=== PATIENT | female | born 1990 | race Caucasian/White ===

== ENCOUNTER 2023-10-27 13:03 | Emergency (ER) | payer OTHER, SELFPAY ==
[2023-10-27] VITALS (7 sets, daily range): BP systolic 95–110; BP diastolic 50–64; PULSE 42–60; RESP 16–18; TEMP 36.7; O2SAT 98–100; BMI 23.2
[2023-10-27 14:19] LABS: Basophils % 0.5 %; Eosinophils # 0.3 10^3/uL (0.0-0.8); Eosinophils % 4.5 %; Hematocrit 40.9 % (36-47); Lymphocytes # 2.1 10^3/uL (0.8-4.8); Lymphocytes % 33.5 %; Mean Corpuscular HGB Conc 32.3 g/dL (30-55); Mean Corpuscular Hemoglobin 31.1 pg (27-33); Mean Corpuscular Volume 96.5 fl (85-98); Mean Platelet Volume 11.6 fL (7.4-10.4); Monocytes # 0.7 10^3/uL (0.2-0.9); Monocytes % 10.2 %; Neutrophils # 3.27 10^3/uL (1.8-7.7); Neutrophils % 51.1 %; Nucleated Red Blood Cells % 0 %; Platelet Count 205 10^3/cmm (157-399); Red Blood Count 4.24 10^6/uL (3.85-5.65); Red Cell Distribution Width 12.5 % (12.1-15.1); White Blood Count 6.39 10^3/uL (3.29-11.43)
[2023-10-27 14:36] LABS: HCG, Serum Qual Negative (Negative)
--- NOTE | 2023-10-27 15:03 | PC.NURSE ---
this nurse assumed pt care at 1459 when pt was brought to room 3.
[2023-10-27 15:23] LABS: Charge for UA Resulting for Rev
[2023-10-27 15:26] LABS: Bilirubin Urine Negative (Negative); Blood Urine Negative (Negative); Glucose Urine UA Negative (Normal); Ketones Urine Negative (Negative); Leukocyte Esterase Urine 2+ (Negative); Nitrate Urine Negative (Negative); Protein Urine Negative (Negative); Specific Gravity, Urine 1.019 (1.005-1.030); Urine Appearance Clear (CLEAR); Urine Color Yellow (Yellow)
[2023-10-27 15:28] LABS: Bacteria Urine Trace /hpf; Hyaline Casts Urine 1.65 /lpf; RBC Urine 0-2 /hpf (0-2); Squamous Epithelial Cell Urine 0-5 /hpf (0-5)
[2023-10-27 15:33] LABS: Add Urine Culture? Yes
[2023-10-27 15:33] LABS: Alanine Aminotransferase 8 U/L (0-33); Albumin Level 4.3 g/dL (3.5-5.2); Alkaline Phosphatase 50 U/L (35-105); Aspartate Amino Transferase 12 U/L (0-32); Blood Urea Nitrogen 9 mg/dL (6-20); Calcium 9.4 mg/dL (8.5-10.5); Carbon Dioxide 21 mmol/L (22-29); Chloride 106 mmol/L (98-107); Creatinine Clr Calc Pharmacy 97.6178; Globulin 2.9 g/dL (1.3-4.6); Glomerular Filtration Rate 97.6 mL/min (90-130); Glucose 92 mg/dL (65-115); Lipase 24 U/L (13-60); Osmolality Calculated 288 mOsm/kg (285-295); Sodium 140 mmol/L (136-145); Total Bilirubin 0.4 mg/dL (0.15-1.2); Total Protein 7.2 g/dL (6.6-8.7)
--- NOTE | 2023-10-27 15:35 | CTR_ITS ---
PROCEDURE INFORMATION: Exam: CT Abdomen And Pelvis With Contrast Exam date and time: 10/27/2023 3:41 PM Age: 33 years old Clinical indication: Abdominal pain; Localized; Right lower quadrant (rlq); Prior surgery; Surgery date: 6+ months; Surgery type: Fallopian tube removal; Additional info: R lower abdominal pain; N/v/d TECHNIQUE: Imaging protocol: Computed tomography of the abdomen and pelvis with contrast. Radiation optimization: All CT scans at this facility use at least one of these dose optimization techniques: automated exposure control; mA and/or kV adjustment per patient size (includes targeted exams where dose is matched to clinical indication); or iterative reconstruction. Contrast material: OMNI 350; Contrast volume: 100 ml; Contrast route: INTRAVENOUS (IV); COMPARISON: No relevant prior studies available. RADIATION DOSE METRICS: Total DLP (mGy-cm): 334.81 FINDINGS: Liver: Normal. No mass. Gallbladder and biliary ducts: The gallbladder is contracted. Pancreas: Normal. No ductal dilation. Spleen: Normal. No splenomegaly. Adrenal glands: Normal. No mass. Kidneys and ureters: Normal. No hydronephrosis. Stomach and bowel: Unremarkable. No obstruction. No mucosal thickening. Appendix: No evidence of appendicitis. Intraperitoneal space: Unremarkable. No free air. No significant fluid collection. Vasculature: Unremarkable. No abdominal aortic aneurysm. Lymph nodes: Unremarkable. No enlarged lymph nodes. Urinary bladder: Unremarkable as visualized. Reproductive: There are probable ovarian cysts.Fluid is seen in the pelvis which may be physiologic. Bones/joints: Unremarkable. No acute fracture. Soft tissues: Unremarkable. CT/CT abdomen pelvis w con* [id number] IMPRESSION: There are no acute concerning abnormalities. There are probable ovarian cysts.Fluid is seen in the pelvis which may be physiologic. If there is desire for further evaluation, a pelvic ultrasound could be performed.
--- NOTE | 2023-10-27 15:36 | ED_ITS ---
HPI - Abdominal Pain 2 General: Chief Complaint: Abdominal Pain Stated Complaint: ABD PAIN Time Seen by Provider: 10/27/23 14:40 Source: patient Mode of arrival: ambulatory Limitations: no limitations History of Present Illness: Patient is a 33-year-old female presents to ED today with complaint of right lower quadrant abdominal pain that began approximately 3 to 4 days ago. She states pain is progressively worsened since onset. She states she is now having nausea, has had a couple of episodes of nonbloody emesis as well as diarrhea. She is reporting chills but no noted fevers. She feels like pain is worse with movement and walking. She states she is scheduled to start her next menstrual cycle in a few days. Denies chance of as she has had a bilateral salpingectomy. She does report being told in the past that she could have diverticulosis or ulcerative colitis although states none of her symptoms today feel similar to previous GI issues she has experienced. She is not having any urinary symptoms. No flank pain. MD elicited complaint: abdominal pain Pertinent past history: none Onset (ago): day(s) Pain Consistency: constant and other (progressively worsening) Location: RLQ Severity: severe Quality: sharp Radiation: none Migration to: no migration Exacerbating factors: movement and other (walking) Relieving factors: nothing Associated Symptoms: Reports chills, diarrhea, nausea and vomiting; Denies dysuria, fever(s) and hematemesis Related Data: Patient : No Review of Systems 2 Const: Reports: chills; Denies: fever(s), body aches, fatigue or malaise Card: Denies: chest pain Resp: Denies: dyspnea GI: Reports: abdominal pain, nausea, vomiting and diarrhea; Denies: hematemesis : Denies: flank pain, difficulty voiding, dysuria, urinary frequency, urinary urgency, urinary hesitancy, genital lesions, genital pruritis, vaginal odor, vaginal bleeding or vaginal discharge Musc: Denies: neck pain, back pain, extremity pain or joint pain Skin/Breast: Denies: rash Neuro: Denies: headache(s) or dizziness Physical Exam 2 Const: COMMON NORMALS: no acute distress, average body habitus, patient oriented x3, no limitations, healthy appearing, alert and well nourished G ENERAL APPEARANCE: cooperative ORIENTATION/CONSCIOUSNESS: Yes awake, Yes oriented to person, Yes oriented to place and Yes oriented to time Eye: COMMON NORMALS: no scleral icterus Resp: COMMON NORMALS: normal respiratory effort and clear to auscultation bilaterally AUSCULTATION: clear to auscultation bilaterally Cardio: COMMON NORMALS: regular rate and regular rhythm RATE: regular rate RHYTHM: regular rhythm GI: COMMON NORMALS: Normal to inspection, nondistended, normoactive bowel sounds present, Soft to palpation, No hepatosplenomegaly present and no masses INSPECTION: Yes normal to inspection AUSCULTATION: Yes normoactive bowel sounds PALPATION: Yes Soft to palpation, Yes Tenderness to palpation present (GI) Details: RLQ, Yes Guarding due to palpation present (GI), No Rigid due to palpation and Yes No hepatosplenomegaly present OTHER: specialized appy testing : COMMON NORMALS: Yes no CVA tenderness BLADDER/KIDNEY EXAM: Yes no CVA tenderness Back/Pelvis: COMMON NORMALS: no CVA tenderness and thoracic and lumbar spine normal to inspection Extremity: GENERAL: Yes normal exam except as noted Neuro: MARQUEZ COMA SCALE: document GCS findings Marquez coma scale eye opening: Spontaneous Marquez coma scale verbal response: Orientated Marquez coma scale motor response: Obey commands Marquez coma scale total score: 15 COMMON NORMALS: patient oriented x3 SENSORIUM/ORIENTATION: Yes alert, Yes oriented to person, Yes oriented to place and Yes oriented to time Skin: COMMON NORMALS: no rashes or lesions noted GENERAL SKIN EXAM: no rashes or lesions noted Course 2 Vital Signs: Vital signs: Vital Signs Temperature 98.1 F 10/27/23 13:31 Pulse Rate 42 L 10/27/23 17:55 Respiratory Rate 16 10/27/23 17:55 Blood Pressure 95/54 10/27/23 17:55 Pulse Oximetry 99 10/27/23 17:55 Oxygen Delivery Me thod Room Air 10/27/23 17:55 MDM - Abdominal Pain Medical Decision Making Patient here for right lower quadrant pain over the past 3 days. She arrives with stable vital signs. Blood work is completely unremarkable. She has a normal white count. UA suspicious for infection with 2+ leukocyte esterase and 15-[address] scan showing no acute concerning abnormalities. Pelvic ultrasound is essentially unremarkable per Hung/electrostatic powder coating technician. Recommend close follow-up with her primary care provider early this week for reevaluation. Return to ED precautions given. Medical Records I reviewed the patient's medical records. Lab Data I reviewed the patient's lab results. 10/27/23 14:01 10/27/23 14:01 Labs/Radiology: Radiology Impressions Abdomen/Pelvis CT 10/27/23 15:35 IMPRESSION: There are no acute concerning abnormalities. There are probable ovarian cysts.Fluid is seen in the pelvis which may be physiologic. If there is desire for further evaluation, a pelvic ultrasound could be performed. Laboratory Results WBC 6.39 10^3/uL (3.29-11.43) 10/27/23 14:01 RBC 4.24 10^6/uL (3.85-5.65) 10/27/23 14:01 Hgb 13.20 g/dL (11.27-16.99) 10/27/23 14:01 Hct 40.9 % (36-47) 10/27/23 14:01 MCV 96.5 fl (85-98) 10/27/23 14:01 MCH 31.1 pg (27-33) 10/27/23 14:01 MCHC 32.3 g/dL (30-55) 10/27/23 14:01 RDW 12.5 % (12.1-15.1) 10/27/23 14:01 Plt Count 205 10^3/cmm (157-399) 10/27/23 14:01 MPV 11.6 fL (7.4-10.4) H 10/27/23 14:01 Neut % (Auto) 51.1 % 10/27/23 14:01 Lymph % (Auto) 33.5 % 10/27/23 14:01 [place] % (Auto) 10.2 % 10/27/23 14:01 Eos % (Auto) 4.5 % 10/27/23 14:01 Baso % (Auto) 0.5 % 10/27/23 14:01 Neut # (Auto) 3.27 10^3/uL (1.8-7.7) 10/27/23 14:01 Lymph # (Auto) 2.1 10^3/uL (0.8-4.8) 10/27/23 14:01 [place] # (Auto) 0.7 10^3/uL (0.2-0.9) 10/27/23 14:01 Eos # (Auto) 0.3 10^3/uL (0.0-0.8) 10/27/23 14:01 Baso # (Auto) 0.0 10^3/uL (0.0-0.1) 10/27/23 14:01 Nucleated RBC % (auto) 0 % 10/27/23 14:01 Nucleated RBCs # 0.0 /100WBC 10/27/23 14:01 Sodium 140 mmol/L (136-145) 10/27/23 14:01 Potassium 4.0 mmol/L (3.5-5.1) 10/27/23 14:01 Chloride 106 mmol/L (98-107) 10/27/23 14:01 Carbon Dioxide 21 mmol/L (22-29) L 10/27/23 14:01 Anion Gap 17.0 (5-19) 10/27/23 14:01 BUN 9 mg/dL (6-20) 10/27/23 14:01 Creatinine 0.7 mg/dL (0.5-0.9) 10/27/23 14:01 GFR Calculation 97.6 mL/min (90-130) 10/27/23 14:01 Glucose 92 mg/dL (65-115) 10/27/23 14:01 Calculated Osmolality 288 mOsm/kg (285-295) 10/27/23 14:01 Calcium 9.4 mg/dL (8.5-10.5) 10/27/23 14:01 Total Bilirubin 0.4 mg/dL (0.15-1.2) 10/27/23 14:01 AST 12 U/L (0-32) 10/27/23 14:01 ALT 8 U/L (0-33) 10/27/23 14:01 Alkaline Phosphatase 50 U/L (35-105) 10/27/23 14:01 Total Protein 7.2 g/dL (6.6-8.7) 10/27/23 14:01 Albumin 4.3 g/dL (3.5-5.2) 10/27/23 14:01 Globulin 2.9 g/dL (1.3-4.6) 10/27/23 14:01 Lipase 24 U/L (13-60) 10/27/23 14:01 HCG, Qual Negative (Negative) 10/27/23 14:01 Urine Color Yellow (Yellow) 10/27/23 15:18 Urine Appearance Clear (CLEAR) 10/27/23 15:18 Urine pH 7.0 (5-7) 10/27/23 15:18 Ur Specific [place] 1.019 (1.005-1.030) 10/27/23 15:18 Urine Protein Negative (Negative) 10/27/23 15:18 Urine Glucose (UA) Negative (Normal) 10/27/23 15:18 Urine Ketones Negative (Negative) 10/27/23 15:18 Urine Blood Negative (Negative) 10/27/23 15:18 Urine Nitrate Negative (Negative) 10/27/23 15:18 Urine Bilirubin Negative (Negative) 10/27/23 15:18 Urine Urobilinogen 1.0 mg/dL (Negative) 10/27/23 15:18 Ur Leukocyte Esterase 2+ (Negative) A 10/27/23 15:18 Urine RBC 0-2 /hpf (0-2) 10/27/23 15:18 Urine WBC 11-20 /hpf (0-5) H 10/27/23 15:18 Ur Squamous Epith Cells 0-5 /hpf (0-5) 10/27/23 15:18 Amorphous Sediment Not Reportable 10/27/23 15:18 Urine Bacteria Trace /hpf (NONE) 10/27/23 15:18 Hyaline Casts 1.65 /lpf 10/27/23 15:18 All radiology interpretation(s) finalized by discharge Discharge Plan Discharge Patient Disposition: Home Clinical Impression: Abdominal pain, acute, right lower quadrant UTI (urinary tract infection) Qualifiers: Urinary tract infection type: acute cystitis Hematuria presence: without hematuria Qualified Code(s): N30.00 - Acute cystitis without hematuria Condition: Stable Prescriptions: New Macrobid 100 mg capsule 100 mg PO BID 7 Days Qty: 14 0RF Rx Instructions: must administer with a meal/food No Action paroxetine HCl [Paxil] 10 mg tablet 10 mg PO DAILY montelukast 10 mg tablet 10 mg PO DAILY albuterol sulfate 90 mcg/actuation aerosol powdr breath activated 2 inh inhalation Q4H PRN paroxetine HCl [Paxil] 10 mg tablet 10 mg PO DAILY Qty: 21 0RF Discharge Orders: Discharge ED (Routine); Ordered 10/27/23 Ordered By: Inocencia Hernandze Patient Instructions: Abdominal Pain (ED) Activity Restrictions/Additional Instructions: Please follow-up with your primary care provider early this week for reevaluation. You need to return to the emergency department for worsening pain, fevers, generally feeling worse or unwell, uncontrollable vomiting or diarrhea, flank pain, or any other concerns you may have. I hope you begin to feel better soon. Coding Level of Care Code ED Radio Assembler for Dolores Nathan
[2023-10-27] MEDS: iohexol 350 mg/mL 500 mL Btl (per mL) IV (15:45)
--- NOTE | 2023-10-27 16:57 | USR_ITS ---
PROCEDURE INFORMATION: Exam: US Pelvis, Transvaginal, Non-Obstetric Exam date and time: 10/27/2023 6:15 PM Age: 33 years old Clinical indication: Pelvic pain; Prior surgery; Surgery date: 6+ months; Surgery type: Unsure of dates- patient had a bilateral salpingectomy; Additional info: R pelvic pain TECHNIQUE: Imaging protocol: Real-time transvaginal pelvic (non-obstetric) ultrasound with image documentation. Transvaginal imaging was used for better evaluation of the endometrium, adnexa, and/or cervix. COMPARISON: CT abdomen pelvis w con* [id number] 10/27/2023 3:41 PM FINDINGS: Uterus: The uterus measures 4.3 x 4 cm. No uterine mass. The endometrial thickness is 0.6 cm. No intrauterine . Right ovary/adnexa: Measures 3.7 x 3.5 x 2 cm. There are subcentimeter physiologic cysts. No mass. Normal ovarian blood flow on color Doppler. Left ovary/adnexa: Measures 2.7 x 2.4 x 2.2 cm. There is isoechoic area just inferior to left ovary which may represent artifact versus ovarian tissue. There are subcentimeter physiologic cysts. No mass. Normal ovarian blood flow on color Doppler. Intraperitoneal space: There is a small amount of free fluid in the pelvis. US/US transvaginal [id number] IMPRESSION: No acute findings.
[2023-10-27] MEDS: ondansetron 2 mg/ML SDV 2 mL 4 MG IVP (17:20)
[2023-10-27] MEDS: HYDROmorphone 1 mg/mL INJ 1 mL 0.5 MG IVP (17:20)
[2023-10-27] MEDS: ketorolac 30 mg/mL INJ IVP (19:30)
== END 2023-10-27 19:39 | disposition home or self-care (01) ==
PROVIDERS: Emergency Provider Physician Assistant
DX: N30.00 Acute cystitis without hematuria (principal); R10.31 Right lower quadrant pain
CPT/HCPCS: 36415; 74177; 76830; 80053; 81003; 81015; 83690; 84703; 85025; 87086; 96374; 96375; 99285; J1170; J1885; J2405; Q9967

== ENCOUNTER 2024-09-23 01:11 | Emergency (ER) | payer MEDICAID, SELFPAY ==
--- OUTSIDE RECORDS SUMMARY | 2024-09-23 01:14 | XMS_ITS | Data Portability ---
Author Organization AFIA Johnson [facility] [place] [facility], [facility] Address [address] [facility] [address] [place] [address] Assessment Encounter Date Assessment Date Assessment LastModified by Organization Details LastModified Time 01/30/2024 01/30/2024 Patient here for a check-up today. She had scans done in [place] previously. No history of colonoscopy. She was told maybe she had diverticulosis or ulcerative colitis per patient. She reports she had a baby in March in 2022 and thinks that was around when her last pap smear was. She will sign for her records to be sent here. 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 Not available 01/31/2024 12:45:29 07/02/2024 07/02/2024 Patient here today to establish care and to discuss the pain she has been having in her hip. She reports she did fall and did not seek treatment at the time of the fall anywhere and the pain has just continued. Not available 07/03/2024 16:52:15 Plan of Treatment Reminders Order Date Submit Date Provider Last Modified By Organization Details Last Modified Time Details Appointments None recorded. Lab CMP, serum or plasma 2024 025 DARNELL [facility], [address] [facility] [address], [address], [place], [address], 5 16:28:43 CMP, serum or plasma 2023 024 DARNELLIRMA [facility], [address] [facility], [address], [place], [address], 4 14:13:17 lipid panel, blood 2023 024 [facility], [address] [facility] [facility] [address], [address], 4 14:13:20 CBC 2023 024 [facility], [address] [facility] [facility] [address], [address], 4 12:52:27 TSH, serum or plasma 2023 024 [facility] ([facility]), [address] [place], [address], 4 13:22:39 Referral primary care provider referral 2023 024 [email or web address] Not available 4 10:43:00 psychiatris t referral 2023 024 [email or web address] Not available 4 11:51:04 Procedures None recorded. Surgeries None recorded. Imaging XR, hip, unilateral, 2 or 3 view 2024 025 [facility] ([facility]), [address] [place], [address], 5 08:35:30 PFT, complete [email or web address] [place] [address] (Scheduling Orders), [address] [place], [address], 4 10:15:18 Medication Orders Paxil 10 mg tablet 2024 025 [facility] [place], [address] [place], [address], 5 16:26:19 ProAir HFA 90 mcg/actuati on aerosol inhaler 2023 025 [facility]acy #[id number], [address], [address], [place], [address], 5 15:11:17 Paxil 10 mg tablet 2023 024 [email or web address] [facility]acy #[id number], [address], [address], [place], [address], 5 15:11:10 meloxicam 7.5 mg tablet 2023 024 [facility]/Ph[facility]acy #[id number], [address], [address], [place], [address], 14:21:37 Patient TargetsNo targets recorded. Patient Instructions Encounter Date Encounter Id Patient Instructions Last Modified By Organization Details Last Modified Time 01/30/2024 [id number] Call or return for questions or concerns. Not available 01/30/2024 11:33:27 07/02/2024 [id number] Call or return for questions or concerns. Not available 07/03/2024 16:52:39 Reason for Referral Psychiatrist Referral for De pressive disorder Referring Physician: [facility], Encounter Date: 01/30/2024 Primary Care Provider Referr al for Abdominal pain Referring Physician: [facility], Encounter Date: 01/30/2024 Results Created Date Observation Date Name Description Value Unit Range Abnormal Flag Note LastModifiedBy Organization Detail LastModifiedTime 01/30/2001/30/2024 CBC WBC 9.3 x10 4.0-10 .5 Not Available [facility] [address] [facility], [place], [address], 01/30/2024 12:52:26 01/30/20 24 01/30/2024 CBC RBC 4.23 x10 3.50-5 .50 Not Available [facility] [address] [facility] [facility] [address], [place], [address], 01/30/2024 12:52:26 01/30/20 24 01/30/2024 CBC HGB 13.5 g/dL 12.0-1 6.0 Not Available [facility] [address], [place], [address], 01/30/2024 12:52:26 01/30/20 24 01/30/2024 CBC HCT 39.6 % 37.0-4 7.0 Not Available [facility] [address], [place], [address], 01/30/2024 12:52:26 01/30/20 24 01/30/2024 CBC MCV 93.6 fL 80.0-9 9.9 Not Available [facility] [address] [facility] [address], [place], [address], 01/30/2024 12:52:26 01/30/20 24 01/30/2024 CBC MCH 31.8 pg 27.0-3 2.0 Not Available [facility] [address], [place], [address], 01/30/2024 12:52:26 01/30/20 24 01/30/2024 CBC MCHC 34.0 g/dL 32.0-3 6.0 Not Available [facility] [address], [place], [address], 01/30/2024 12:52:26 01/30/20 24 01/30/2024 CBC RDW 14.3 % 11.5-1 4.5 Not Available [facility] [address], [place], [address], 01/30/2024 12:52:26 01/30/20 24 01/30/2024 CBC plt 245.7 x10 140.0- 451.0 Not Available [facility] [address] [address] [facility] [address], [place], [address], 01/30/2024 12:52:26 01/30/20 24 01/30/2024 CBC lymphocytes % 25.1 % 20.0-5 0.0 Not Available [facility] [address] [facility] [facility] [address] [facility] [address], [place], [address], 01/30/2024 12:52:26 01/30/20 24 01/30/2024 CBC granulcytes % 65.4 % 30.0-7 0.0 Not Available [facility] [address] [facility] [address] [facility] [address], [place], [address], 01/30/2024 12:52:26 01/30/20 24 01/30/2024 CBC monocytes % 6.6 % 2.0-16 .0 Not Available [facility] [address] [place] [address] [facility] [address], [place], [address], 01/30/2024 12:52:26 01/30/20 24 01/30/2024 CBC granulcytes# 6.1 x10 Not Brenda ilable [facility] [address] [facility] [address] [facility] [address], [place], [address], 01/30/2024 12:52:26 01/30/20 24 01/30/2024 CBC lymphocytes # 2.3 x10 Not Available [facility] [address] [facility] [address] [facility] [address], [place], [address], 01/30/2024 12:52:26 01/30/20 24 01/30/2024 CBC monocytes # 0.6 x10 Not Avai lable [facility] [address] [facility] [address] [facility] [address], [place], [address], 01/30/2024 12:52:26 01/30/20 24 01/30/2024 CMP (FEMA LE) glucose 95.0 mg/dL 60.0-9 9.0 Not Available [facility] [address] [facility], [place], [address], 01/30/2024 14:13:17 01/30/20 24 01/30/2024 CMP (FEMA LE) BUN (blood urea nitrogen) 11.0 mg/dL 10.0-2 6.0 Not Available [facility] [address] [facility] [address], [place], [address], 01/30/2024 14:13:17 01/30/20 24 01/30/2024 CMP (FEMA LE) creatinine (serum) 0.7 mg/dL 0.4-1. 5 Not Available [facility] [address] [facility] [address], [place], [address], 01/30/2024 14:13:17 01/30/20 24 01/30/2024 CMP (FEMA LE) BUN/creatini ne ratio 15.07 ratio Not Available [facility] [address] [facility] [address], [place], [address], 01/30/2024 14:13:17 01/30/2001/30/2024 CMP (FEMA LE) eGFR calculated 98.8 Not Available [facility] [address] [facility] [address], [place], [address], 01/30/2024 14:13:17 01/30/20 24 01/30/2024 CMP (FEMA LE) total protein 7.9 g/dL 6.0-8. 5 Not Available [facility] [address] [facility] [address], [place], [address], 01/30/2024 14:13:17 01/30/20 24 01/30/2024 CMP (FEMA LE) total bilirubin 0.4 mg/dL 0.2-1. 3 Not Available [facility] [address] [address], [place], [address], 01/30/2024 14:13:17 01/30/20 24 01/30/2024 CMP (FEMA LE) albumin 4.7 g/dL 3.5-5. 5 Not Available [facility] [address], [place], [address], 01/30/2024 14:13:17 01/30/20 24 01/30/2024 CMP (FEMA LE) globulin 3.2 calc Not Available [facility] [address], [place], [address], 01/30/2024 14:13:17 01/30/20 24 01/30/2024 CMP (FEMA LE) AST (SGOT) 18.0 U/L 0.0-46 .0 Not Available [facility] [address] [facility] [address] [facility] [address], [place], [address], 01/30/2024 14:13:17 01/30/20 24 01/30/2024 CMP (FEMA LE) altv (SGPT) 14.0 U/L 13.0-6 9.0 normal Not Available [facility] [address] [facility] [address] [facility] [address], [place], [address], 01/30/2024 14:13:17 01/30/20 24 01/30/2024 CMP (FEMA LE) A/G ratio 1.5 ratio Not Available [facility] [address], [place], [address], 01/30/2024 14:13:17 01/30/20 24 01/30/2024 CMP (FEMA LE) ALP phos 47.0 U/L 30.0-1 40.0 normal Not Available [facility] [address] [place] [address] [facility] [address], [place], [address], 01/30/2024 14:13:17 01/30/20 24 01/30/2024 CMP (FEMA LE) calcium 9.7 mg/dL 8.4-10 .5 Not Available [facility] [address] [facility] [address], [place], [address], 01/30/2024 14:13:17 01/30/2001/30/2024 CMP (FEMA LE) sodium 140.0 mmol/ L 136.0- 145.0 Not Available [facility] [address] [facility] [address], [place], [address], 01/30/2024 14:13:17 01/30/2001/30/2024 CMP (FEMA LE) potassium 4.2 mmol/ L 3.5-5. 1 Not Available [facility] [address] [facility] [address], [place], [address], 01/30/2024 14:13:17 01/30/2001/30/2024 CMP (FEMA LE) chloride 105.0 mmol/ L 98.0-1 10.0 normal Not Available [facility] [address] [facility] [address], [place], [address], 01/30/2024 14:13:17 01/30/20 24 01/30/2024 CMP (FEMA LE) C02 28.0 mmol/ L 22.0-3 1.0 Not Available [facility] [address] [facility] [address], [place], [address], 01/30/2024 14:13:17 01/30/2001/30/2024 CMP (FEMA LE) anion gap 7.0 calc Not Available [facility] [address] [facility] [address], [place], [address], 01/30/2024 14:13:17 01/30/2001/30/2024 CMP (FEMA LE) osmolality 288.4 calc Not Available [facility] [address] [facility] [address], [place], [address], 01/30/2024 14:13:17 01/30/20 24 01/30/2024 LIPID PROFI LE (FEMA LE) cholesterol 169.0 mg/dL 0.0-20 0.0 Not Available [facility] [address] [facility] [address], [place], [address], 01/30/2024 14:13:20 01/30/20 24 01/30/2024 LIPID PROFI LE (FEMA LE) trig 83.0 mg/dL 0.0-15 0.0 Not Available [facility] [address] [facility] [address], [place], [address], 01/30/2024 14:13:20 01/30/20 24 01/30/2024 LIPID PROFI LE (FEMA LE) HDL - direct 49.0 mg/dL >40.0 Not Available [facility] [address] [facility] [address], [place], [address], 01/30/2024 14:13:20 01/30/20 24 01/30/2024 LIPID PROFI LE (FEMA LE) VLDL - direct 16.6 mg/dL Not Available [facility] [address] [facility] [address], [place], [address], 01/30/2024 14:13:20 01/30/20 24 01/30/2024 LIPID PROFI LE (FEMA LE) LDL - direct 103.4 mg/dL 0.0-13 0.0 Not Available [facility] [address] [facility] [address], [place], [address], 01/30/2024 14:13:20 01/30/20 24 01/30/2024 TSH, serum or plasm a TSH 0.71 uIU/m L 0.49-3 .82 normal Not Available [facility] ([facility]) [address] [place], [address], 01/30/2024 11:13:06 07/03/19 25 07/02/2024 CMP (FEMA LE) glucose 79.0 mg/dL 60.0-9 9.0 Not Available [address] [address], [place], [address], 07/02/2024 16:28:43 07/03/19 25 07/02/2024 CMP (FEMA LE) BUN (blood urea nitrogen) 8.0 mg/dL 10.0-2 6.0 low Not Available [address] [address], [place], [address], 07/02/2024 16:28:43 07/03/19 25 07/02/2024 CMP (FEMA LE) creatinine (serum) 0.8 mg/dL 0.4-1. 5 Not Available [address] [address], [place], [address], 07/02/2024 16:28:43 07/03/19 25 07/02/2024 CMP (FEMA LE) BUN/creatini ne ratio 10.00 ratio Not Available [address] [address], [place], [address], 07/02/2024 16:28:43 07/03/19 25 07/02/2024 CMP (FEMA LE) eGFR calculated 88.9 Not Available [facility] [address] [address], [place], [address], 07/02/2024 16:28:43 07/03/19 25 07/02/2024 CMP (FEMA LE) total protein 7.6 g/dL 6.0-8. 5 Not Available [address] [address], [place], [address], 07/02/2024 16:28:43 07/03/19 25 07/02/2024 CMP (FEMA LE) total bilirubin 0.5 mg/dL 0.2-1. 3 Not Available [facility] [address] [facility] [address], [place], [address], 07/02/2024 16:28:43 07/03/19 25 07/02/2024 CMP (FEMA LE) albumin 4.5 g/dL 3.5-5. 5 Not Available [facility] [address] [facility] [address], [place], [address], 07/02/2024 16:28:43 07/03/19 25 07/02/2024 CMP (FEMA LE) globulin 3.1 calc Not Available [facility] [address] [facility] [address], [place], [address], 07/02/2024 16:28:43 07/03/19 25 07/02/2024 CMP (FEMA LE) AST (SGOT) 22.0 U/L 0.0-46 .0 Not Available [facility] [address] [facility] [address], [place], [address], 07/02/2024 16:28:43 07/03/19 25 07/02/2024 CMP (FEMA LE) altv (SGPT) 28.0 U/L 13.0-6 9.0 normal Not Available [facility] [address] [facility] [address], [place], [address], 07/02/2024 16:28:43 07/03/19 25 07/02/2024 CMP (FEMA LE) A/G ratio 1.5 ratio Not Available [facility] [address] [facility] [address], [place], [address], 07/02/2024 16:28:43 07/03/19 25 07/02/2024 CMP (FEMA LE) ALP phos 45.0 U/L 30.0-1 40.0 normal Not Available [facility] [address] [facility] [address], [place], [address], 07/02/2024 16:28:43 07/03/19 25 07/02/2024 CMP (FEMA LE) calcium 9.6 mg/dL 8.4-10 .5 Not Available [facility] [address] [facility] [address], [place], [address], 07/02/2024 16:28:43 07/03/19 25 07/02/2024 CMP (FEMA LE) sodium 142.0 mmol/ L 136.0- 145.0 Not Available [facility] [address] [facility] [address], [place], [address], 07/02/2024 16:28:43 07/03/19 25 07/02/2024 CMP (FEMA LE) potassium 4.4 mmol/ L 3.5-5. 1 Not Available [facility] [address] [facility] [address], [place], [address], 07/02/2024 16:28:43 07/03/19 25 07/02/2024 CMP (FEMA LE) chloride 105.0 mmol/ L 98.0-1 10.0 normal Not Available [facility] [address] [facility] [address], [place], [address], 07/02/2024 16:28:43 07/03/19 25 07/02/2024 CMP (FEMA LE) C02 31.0 mmol/ L 22.0-3 1.0 Not Available [facility] [address] [facility] [address], [place], [address], 07/02/2024 16:28:43 07/03/19 25 07/02/2024 CMP (FEMA LE) anion gap 6.0 calc Not Available [facility] [address], [place], [address], 07/02/2024 16:28:43 07/03/1907/02/2024 CMP (FEMA LE) osmolality 290.6 calc Not Available [facility] [address], [place], [address], 07/02/2024 16:28:43 07/04/1907/02/2024 XR, hip, unila teral , 2 or 3 view No observ ation record ed. [email or web address] [facility] [address], [place], [address], 07/04/2024 14:51:45 Result Notes None recorded. Problems Name Problem SNOMED Code Status Onset Date Resolution Date Notes Provider Name and Address Organization Details Recorded Time Mixed anxiety and depressive disorder 369230911 Active 2024 RACHAEL payton [facility] 13:02:29 Ben de la Tourette's syndrome 5346531 Active 2024 RACHAEL payton [facility] 17:54:27 Adult attention deficit hyperactivity disorder 941553781 Active 2024 RACHAEL payton [facility] 17:54:37 Posttraumatic stress disorder 16716142 Active 2024 RACHAEL payton [facility] 17:54:48 Psychophysiolo gic insomnia 887618323 Active 2024 RACHAEL payton [facility] 17:55:13 Recurrent major depression 34520591 Active 2024 RACHAEL payton [facility] 17:55:41 Cannabis dependence 25350515 [facility] 20[facility] 5 17:55:55 Problem Notes None recorded. Procedures Surgical History Date Name Laterality Status Provider Name and Address Organization Details Recorded Time 07/03/19 25 plain X-ray of right hip completed RACHAEL DURAND [facility] 07/04/2024 14:51:26 fallopian tube excision completed RACHAEL DURAND [facility] 01/30/2024 11:06:56 tonsillectomy completed [facility] 07/02/2024 15:16:19 Imaging Results None recorded. Procedure Notes None recorded. Medical Equipment None Reported. Allergies Allergen ID Allergen Name Allergen Category Reaction Reaction Severity Criticality Documentation Date Start Date Code Code System Note Provider Name and Address Organization Details Recorded Time 49231 Effexor medicatio n Not available Not available Not available 01/30/2024 38293 2 RxNorm Hives [facility] 4 10:51:44 07530 Haldol medicatio n Not available Not available Not available 01/30/2024 42732 9 RxNorm Psych osis [facility] 4 10:52:01 99704 Keflex medicatio n Not available Not available Not available 01/30/202423542 7 RxNorm Hives /itch ing [facility] 4 10:52:13 55114 Klonopin medicatio n Not available Not available Not available 01/30/202498877 5 RxNorm Hives [facility] 4 10:52:24 03531 morphine medicatio n Not available Not available Not available 01/30/2024 7052 RxNorm sob/h magali [facility] 4 10:52:37 94047 Ultram medicatio n Not available Not available Not available 01/30/2024 14603 6 RxNorm hives RACHAEL LADARIUS payton [facility] 4 10:52:47 59770 buspirone medicatio n Not available Not available Not available 01/30/2024 1827 RxNorm unkno wn RACHAEL DURAND t[facility] 4 10:54:27 Medications Name Sig Start Date Stop Date Status Note LastModified by Organization Details LastModified Time paroxetine 10 mg tablet TAKE 1 TABLET BY MOUTH EVERY DAY 2024 active Not Available Not Available Not Avai lable doxepin 25 mg capsule TAKE 1 CAPSULE BY MOUTH ONCE DAILY AT BEDTIME NEEDED FOR INSOMNIA 01/29 completed Not Available Not Available Not Available ondansetron HCl 4 mg tablet TAKE 1 TABLET BY MOUTH EVERY 8 HOURS NEEDED FOR NAUSEA AND VOMITING 2024 active Not Available Not Available Not Avai lable prednisone 20 mg tablet TAKE 1 TABLET BY MOUTH TWICE DAILY WITH MEALS FOR 3 DAYS 01/29 completed Not Available Not Available Not Available meloxicam 7.5 mg tablet Take 1 tablet every day by oral route for 30 days. 2023 active Not Available Not Available Not Avai lable orphenadrin e citrate ER 100 mg tablet,exte nded release TAKE 1 TABLET BY MOUTH TWICE DAILY NEEDED FOR SPASM 01/29 completed Not Available Not Available Not Available montelukast 10 mg tablet TAKE 1 TABLET BY MOUTH ONCE DAILY IN THE MORNING 01/29 completed Not Available Not Available Not Available hydroxyzine HCl 25 mg tablet take 1/2 to 1 tablet BY MOUTH UP TO THREE TIMES DAILY NEEDED active Not Available Not Available No t Available mirtazapine 15 mg tablet TAKE 1 TABLET BY MOUTH EVERY DAY AT BEDTIME active Not Available Not Available No t Available atomoxetine 40 mg capsule take 1 capsule BY MOUTH EVERY DAY in THE morning 07/02 completed Not Available Not Available Not Available atomoxetine 60 mg capsule TAKE ONE CAPSULE BY MOUTH DAILY IN THE MORNING active Not Available Not Available No t Available nitrofurant oin monohydrate /macrocryst als 100 mg capsule TAKE 1 CAPSULE BY MOUTH TWICE DAILY FOR 7 DAYS WITH MEALS 01/29 completed Not Available Not Available Not Available ProAir HFA 90 mcg/actuati on aerosol inhaler Inhale 2 puffs every 4 hours by inhalatio n route for 30 days. 07/02 completed Not Available Not Available Not Available Vitals Date Recorded Body height Body mass index (BMI) Body weight Oxygen saturation Oxygen saturation in Arterial blood by Pulse oximetry Heart rate Respiratory rate Systolic And Diastolic Provider Name and Address Organization Details Last Updated DateTime 5 165.1 cm 22.5 kg/m2 99073.9 7 g 99 % 99 % 90 /min 18 /min 124/60 mm[Hg] [facility] 5 15:10:26 Date Recorded Body weight Body mass index (BMI) Body height Oxygen saturation Oxygen saturation in Arterial blood by Pulse oximetry Heart rate Respiratory rate Systolic And Diastolic Provider Name and Address Organization Details Last Updated DateTime 4 31100.0 5 g 20.8 kg/m2 165.1 cm 99 % 99 % 70 /min 18 /min 102/68 mm[Hg] RACHAEL DURAND [facility] 4 10:51:03 Social History Question Answer Notes LastModified by Organizat ion Details LastModified Time Tobacco Smoking Status Former Smoker smoked for about 5 years DARCY GIBSON, [address], [address], [facility] 01/30/2024 11:38:12 What Is Your Level Of Caffeine Consumption? Moderate [email or web address] Information not available 01/30/2024 Which Illicit Or Recreational Drugs Have You Used? Marijuana Information not available 01/30/2024 When Did You Quit Smoking? 6-10yearssinc [email or web address] e Information not available 01/30/2024 What Was The Date Of Your Most Recent Tobacco Screening? 01/30/2024 Information not available 01/30/2024 What Is Your Current Pack Years? 10packyears Information not available 01/30/2024 What Is Your Relationship Status? Information not available 01/30/2024 At What Age Did You Start Smoking Tobacco? 20 Information not available 01/30/2024 How Much Tobacco Do You Smoke? No Information not available 01/30/2024 How Many Years Have You Smoked Tobacco? 5 Information not available 01/30/2024 How Many Years Have You Used E-cigarettes Or Vape? 2 Information not available 01/30/2024 Sex: Unknown Functional Status Question Answer Note LastModified by Organizat ion Details LastModified Time Do you use any illicit or recreational drugs? Yes Smokes THC [email or web address] Information not available 01/30/2024 Do you or have you ever used any other forms of tobacco or nicotine? Yes Information not available 01/30/2024 What is your level of alcohol consumption? Occasional [email or web address] Information not available 01/30/2024 Do you or have you ever used smokeless tobacco? Never used smokeless tobacco Information not available 01/30/2024 Are you currently employed? Yes [email or web address] Information not available 01/30/2024 Are you able to walk? YESWOREST [email or web address] Information not available 01/30/2024 Are you able to care for yourself? Yes [email or web address] Information not available 01/30/2024 Do you or have you ever used e-cigarettes or vape? Former user of electronic cigarettes Information not available 01/30/2024 Do you or have you ever used any nicotine-free cigarettes, vape, or chewing tobacco? No Information not available 01/30/2024 Mental Status None recorded. Family History Relationship Description Onset Age of this Age Resolved Age Notes LastModified by Organization Details LastModified Time Mother Essential hypertension [email or web address] Not available 10:55:24 Mother Fibromyalgia Not brenda ilable 01/30/2024 10:55:39 Mother Hypothyroidi sm Not available 01/29 10:55:49 Maternal Grandmother Malignant tumor of thyroid gland Not available 01/29 10:56:02 Maternal Grandmother Lupus erythematosu s [email or web address] Not available 01/29 10:56:10 Maternal Grandmother Type 2 diabetes mellitus [email or web address] Not available 01/29 10:56:19 Maternal Grandmother Leukemia [email or web address] Not available 10:56:27 Medical History Condition Response Anxiety Disorder Y Depression Y Reflux/GERD Y Headaches Y Mental Illness Y Gynecological HistoryNo gynecological history recorded. Obstetrics History GPAL:G 0 P 0 0 0 0 Immunizations Vaccine Type Date Status Note Provider Nam e and Address Organization Details Recorded Time Influenza, split virus, trivalent, PF 01/30/2024 completed ELENA HUBBARD 47 [place] [address], [phone], [facility], [place] 01/31/2024 12:43:54 Past Encounters Encounter ID Performer Location Encounter Start Date Encounter Closed Date Diagnosis/Indication Diagnosis SNOMED-CT Code Diagnosis ICD10 Code Diagnosis Note [id number] ELENA HUBBARD [facility] ([facility]) [address] [place] [phone] 01/30/2024 09:51:03 01/30/2024 11:47:53 Adult health examination 984272436 Z00.00 Depressive disorder 3548 9007 F32.A Right side sciatica 3202 [id number] 81193 M54.31 Injection of Toradol. She took Prednisone for 3 days following and it was helpful as well as Norflex. Unintentio nal weight loss 474003361 R63.4 Dyspnea [id number] R06.00 Abdominal pain 41483946 R10.9 Administra tion of influenza vaccine 35461587 Z23 Insomnia [id number] G47.0 0 She will try to add Magnesium Glycinate. Reduced libido 6431913 R 68.82 She has tried the pink pill and other herbal remedies without help. [id number] ELENA HUBBARD [facility] ([facility]) [address] [place] [phone] 07/02/2024 14:45:04 07/02/2024 15:39:43 Pain of right hip joint [id number] 85733 M25.551 Mixed anxi ety and depressive disorder 958751824 F41.8 Discussed serotonin syndrome and symptoms, handout provided. Health Concerns Section Related Observation LastModified by Organization Detai ls LastModified Time None Recorded Concern Status LastModified by Organization Details LastModified Time None Recorded Advance Directives Directive None Recorded Payers Insurance Date Sequence Insurance Name Policy Number Policy [place] Covered Member ID [place] Member ID Guarantor Name 07/30/2024 1 THE [employer] [id number] [facility] [id number] [facility] 01/31/2024 2 *SELF PAY* [facility] Notes Date Note Type Note Provider Name and Address Organization Details Recorded Time 01/30/2024 text/html Back PainReporte d bypatient.Location:lum bar right;radiation to buttocks right;radiation to leg right Quality:dull; tender Severity:unchanged Timing:acute Context:atraumaticNote s:She was seen in the ER regarding this pain, no imaging done. Steroids improved pain.FatigueReported bypatient.Quality:gene ralized Duration:chronicGenera lized Anxiety DisorderReported bypatient.Onset/Timing :since childhood Context:depression; obsessive-compulsive disorder; separation anxiety disorder Associated Symptoms:difficulty concentrating;difficul ty controlling worry;excess anxiety;fatigue ELENA HUBBARD [address] [place] [address], [phone], [facility], [place] 01/31/2024 12:46:32 07/02/2024 text/html Generalized Anxi ety DisorderReported bypatient.Onset/Timing :since childhood Context:depression; obsessive-compulsive disorder; separation anxiety disorder Associated Symptoms:difficulty concentrating;difficul ty controlling worry;excess anxiety;fatigueJoint PainReported bypatient.Location:john n radiating to the buttocks;pain radiating to the legs right; right hip Quality:sharp;tingling ;dull Duration:present for 1-6 months ELENA HUBBARD [address] [place] [address], [phone], [facility], [place] 07/03/2024 16:53:17 OBGyn Episode No OBEpisode recorded.
--- OUTSIDE RECORDS SUMMARY | 2024-09-23 01:15 | XMS_ITS | Clinical Summary ---
Author Organization Susy Muir pitok Address [address] [address] [place] [address] Phone Care Team Providers Care Cellar Hand Name Role Phone Unavailable Primary Care Provider Unavailabl e Allergies Active Allergy Reactions Criticality Noted Date Comments Cephalexin Hives High 12/16/2021 Clonazepam Hives High 12/16/2021 Diazepam Hives High 12/16/2021 Haloperidol Lactate Hallucination Low 12/16/2021 Hydrocodone-Acetaminophen Hives High 12/16/2021 Morphine Hives High 12/16/2021 Oxycodone Hives High 12/16/2021 Tramadol Hives High 12/16/2021 Medications vit-iron fumarate-fa (SHAINA ) 28 mg iron- 800 mcg Tablet Take 1 Tablet by mouth daily. Active vitamin B complex-vitamin C-folic acid 1 mg Capsule Take 1 Capsule by mouth daily. Active ondansetron (ZOFRAN) 8 mg Tablet Take 8 mg by mouth every 8 hours as needed for Nausea/Emesis. Active cetirizine (ZyrTEC) 10 mg tablet Take 10 mg by mouth daily. Active docusate sodium (COLACE) 100 mg capsule Take 100 mg by mouth 2 times daily. Active promethazine (PHENERGAN) 25 mg tablet Take 1 Tablet (25 mg) by mouth every 6 hours as needed for Nausea. 30 Tablet 12/17/19 22 Active promethazine (PHENERGAN) 12.5 mg Suppository Insert 1 Suppository (12.5 mg) by rectum every 12 hours as needed for Nausea/Emesis. 15 Suppository 12/17/19 22 Active PARoxetine HCl (PAXIL) 10 mg tablet Take 10 mg by mouth daily. Active orphenadrine (NORFLEX) 100 mg Extended Release tablet Take 1 Tablet (100 mg) by mouth 2 times daily as needed for Spasm. 10 Tablet 1 01/21/20 24 Active Social History Tobacco Use Types Packs/Day Years Used Date Smoking Tobacco: Never Smokeless Tobacco: Never Tobacco Cessation:Counseling Given: Not Answered Alcohol Use Standard Drinks/Week Comments Not Currently 0 (1 standard drink = 0.6 oz pur e alcohol) Feeling Safe Answer Date Recorded Are you in a relationship wi th someone who hurts you emotionally and/or physically? No 01/21/2024 Comments No Sex and Gender Information Value Date Recorded Sex Assigned at Not on file Legal Sex Female 9:58 AM CDT Gender Identity Not on file Sexual Orientation Not on file Last Filed Vital Signs Vital Sign Reading Time Taken Comments Blood Pressure 102/56 01/21/2024 9:15 PM LVN LPN Pulse 55 01/21/2024 9:15 PM LVN LPN Temperature 37.1 C (98.7 F) 01/21/2024 7:59 PM LVN LPN Respiratory Rate 17 01/21/2024 9:15 PM LVN LPN Oxygen Saturation 99% 01/21/2024 9:15 PM LVN LPN Inhaled Oxygen Concentration - - Weight 52.2 kg (115 lb) 01/21/2024 7:59 PM LVN LPN Height 157.5 cm (5' 2 ) 01/21/2024 7:59 PM LVN LPN Body Mass Index 21.03 01/21/2024 7:59 PM LVN LPN Plan of Treatment Health Maintenance Due Date Last Done Comments HPV VACCINES (2 - 2-dose series) 09/19/2007 03/21/19 08 HEPATITIS B VACCINES (1 of 3 - 19+ 3-dose series) 10/03/2011 HPV/Cotest (21-29) 2013 CERVICAL CANCER SCREENING 2022 HPV/Cotest (30-65) 2022 PAP SMEAR 2022 COVID-19 Vaccine ( - 2023-2 5 season) 2023 12/28/2020, 12/01/2020 INFLUENZA VACCINE (#1) 2024 7, 12/26/2016, 01/02/2014, Additional history exists DTAP/TDAP/TD VACCINES (3 - T d or Tdap) 03/15/2025 03/15/2015, 11/26/2012 Insurance [employer]
[2024-09-23 01:16] VITALS: BP 109/66; PULSE 80; RESP 20; TEMP 36.7; O2SAT 100; BMI 23.8
--- NOTE | 2024-09-23 01:54 | XRR_ITS ---
PROCEDURE INFORMATION: Exam: XR Chest Exam date and time: 09/23/2024 1:58 AM Age: 33 years old Clinical indication: Shortness of breath; C/O SOB TECHNIQUE: Imaging protocol: Radiologic exam of the chest. Views: 1 view. COMPARISON: No relevant prior studies available. FINDINGS: Lungs: Lungs are clear bilaterally. Pleural spaces: No pleural effusion. No pneumothorax. Heart/Mediastinum: The cardiac silhouette and mediastinal contours are unremarkable. Bones/joints: Unremarkable for age. XR/XR chest 1V portable [id number] IMPRESSION: Negative chest radiograph.
--- NOTE | 2024-09-23 01:58 | W.ED.SOB ---
HPI - SOB/Dyspnea General: Chief Complaint: Shortness of Breath/Dyspnea Stated Complaint: SOB/ETOH Time Seen by Provider: 09/23/24 01:43 History of Present Illness: HPI Narrative: 33-year-old female who was drinking earlier in the evening. She had a total of about 7 drinks. She began to get short of breath, which made her panic. She has a history of panic disorder, but also has a history of asthma. She was given a breathing treatment by EMS after 911 was called. She feels somewhat improved, but is still having some chest tightness. She is experiencing carpopedal spasm as well, from hyperventilation. Related Data Home Medications ?Medication ?Instructions ?Recorded ?Confirmed albuterol sulfate 90 mcg/actuation 2 inh inhalation Q4H PRN 08/25/23 08/21/24 breath activated powder inhaler montelukast 10 mg tablet 10 mg PO DAILY 08/25/23 08/21/24 paroxetine HCl 10 mg tablet (Paxil) 10 mg PO DAILY 08/25/23 08/21/24 atomoxetine 60 mg capsule 60 mg PO DAILY 04/08/24 08/21/24 (Strattera) mirtazapine 15 mg tablet (Remeron) 15 mg PO DAILY 04/08/24 08/21/24 Previous Rx's ?Medication ?Instructions ?Recorded paroxetine HCl 10 mg tablet (Paxil) 10 mg PO DAILY #21 tabs 08/25/23 ondansetron 4 mg disintegrating 4 mg PO Q6H PRN nausea and 04/08/24 tablet vomiting #12 tabs azithromycin 500 mg tablet 500 mg PO DAILY 5 days #5 tabs 08/21/24 prednisone 20 mg tablet 20 mg PO DAILY 5 days #5 tabs 08/21/24 Allergies Allergy/AdvReac Type Severity Reaction Status Date / Time diazepam (From Valium) Allergy Severe aggitation Verified 08/21/24 11:19 haloperidol (From Haldol) Allergy Severe ADR-Agitate Verified 08/21/24 11:19 d sertraline (From Zoloft) Allergy Severe panic Verified 08/21/24 11:19 atacks/ buspirone Allergy Intermediate ADR-Agitate Verified 08/21/24 11:19 d cephalexin (From Keflex) Allergy Intermediate rash Verified 08/21/24 11:19 clonazepam Allergy Intermediate delusions Verified 08/21/24 11:19 morphine Allergy Intermediate vomitng Verified 08/21/24 11:19 and rash tramadol (From Ultram) Allergy Intermediate hives Verified 08/21/24 11:19 venlafaxine (From Effexor) Allergy Intermediate rash Verified 08/21/24 11:19 prozac Allergy Severe anxiety Uncoded 08/21/24 11:19 lortab Allergy Intermediate vomiting/ra Uncoded 08/21/24 11:19 PFSH ED PFSH: Social History Smoking and tobacco/nicotine status: current every day tobacco/nicotine user (vapes daily) Female Reproductive History: Date of last menstrual period: 09/16/24 Physical Exam Const: COMMON NORMALS: no acute distress GENERAL APPEARANCE: cooperative and anxious; not ill appearing and not frail appearing HENMT: COMMON NORMALS: normocephalic, atraumatic and Normal external nose present HEAD & SCALP: normocephalic and atraumatic FACE & SINUS: normal facial exam and face symmetric NOSE: Normal external nose present Eye: COMMON NORMALS: Equal, round and reactive pupils present and EOMs intact bilaterally PUPIL: Yes Equal, round and reactive pupils present Neck/C-Spine: GENERAL: Yes trachea midline Chest: CHEST: Yes Symmetrical chest wall rise Resp: COMMON NORMALS: normal respiratory effort, No retractions, No use of accessory muscles and clear to auscultation bilaterally AUSCULTATION: clear to auscultation bilaterally Cardio: COMMON NORMALS: regular rate and regular rhythm RATE: regular rate RHYTHM: regular rhythm GI: COMMON NORMALS: Normal to inspection, nondistended, normoactive bowel sounds present Extremity: COMMON NORMALS: no pedal edema Neuro: MARQUEZ COMA SCALE: document GCS findings [place] coma scale eye opening: Spontaneous [place] coma scale verbal response: Orientated [place] coma scale motor response: Obey commands Marquez coma scale total score: 15 SENSORY EXAM: Yes extremities (intact) Psych: COMMON NORMALS: speech normal SPEECH: Yes normal speech Skin: COMMON NORMALS: no rashes or lesions noted GENERAL SKIN EXAM: no rashes or lesions noted Course Vital Signs: Vital signs: Vital Signs Temperature 98.0 F 09/23/24 01:16 Pulse Rate 85 09/23/24 02:30 Respiratory Rate 17 09/23/24 02:24 Blood Pressure 109/66 09/23/24 01:16 Pulse Oximetry 99 09/23/24 02:24 Oxygen Delivery Me thod Room Air 09/23/24 02:24 MDM - SOB/Dyspnea Medical Decision Making Chest x-ray is negative. Bicarbonate level is 19. Ethanol level is 90. Other laboratory is normal. She is feeling improved after DuoNeb treatments and lorazepam here. She will be allowed discharge home advised to avoid alcohol consumption. Lab Data 09/23/24 02:10 09/23/24 02:10 Labs/Radiology: Radiology Impressions Chest X-Ray 09/23/24 01:54 IMPRESSION: Negative chest radiograph. Laboratory Results WBC 10.76 10^3/uL (3.29-11.43) 09/23/24 02:10 RBC 3.92 10^6/uL (3.85-5.65) 09/23/24 02:10 Hgb 12.30 g/dL (11.27-16.99) 09/23/24 02:10 Hct 36.8 % (36-47) 09/23/24 02:10 MCV 93.9 fl (85-98) 09/23/24 02:10 MCH 31.4 pg (27-33) 09/23/24 02:10 MCHC 33.4 g/dL (30-55) 09/23/24 02:10 RDW 13.1 % (12.1-15.1) 09/23/24 02:10 Plt Count 263 10^3/cmm (157-399) 09/23/24 02:10 MPV 11.6 fL (7.4-10.4) H 09/23/24 02:10 Neut % (Auto) 85.7 % 09/23/24 02:10 Lymph % (Auto) 9.9 % 09/23/24 02:10 [place] % (Auto) 3.5 % 09/23/24 02:10 Eos % (Auto) 0.2 % 09/23/24 02:10 Baso % (Auto) 0.5 % 09/23/24 02:10 Neut # (Auto) 9.23 10^3/uL (1.8-7.7) H 09/23/24 02:10 Lymph # (Auto) 1.1 10^3/uL (0.8-4.8) 09/23/24 02:10 [place] # (Auto) 0.4 10^3/uL (0.2-0.9) 09/23/24 02:10 Eos # (Auto) 0.0 10^3/uL (0.0-0.8) 09/23/24 02:10 Baso # (Auto) 0.1 10^3/uL (0.0-0.1) 09/23/24 02:10 Nucleated RBC % (auto) 0 % 09/23/24 02:10 Nucleated RBCs # 0.0 /100WBC 09/23/24 02:10 Sodium 142 mmol/L (136-145) 09/23/24 02:10 Potassium 3.6 mmol/L (3.5-5.1) 09/23/24 02:10 Chloride 106 mmol/L (98-107) 09/23/24 02:10 Carbon Dioxide 19 mmol/L (22-29) L 09/23/24 02:10 Anion Gap 20.6 (5-19) H 09/23/24 02:10 BUN 7 mg/dL (6-20) 09/23/24 02:10 Creatinine 0.7 mg/dL (0.5-0.9) 09/23/24 02:10 GFR Calculation 97.6 mL/min (90-130) 09/23/24 02:10 Glucose 90 mg/dL (65-115) 09/23/24 02:10 Calculated Osmolality 292 mOsm/kg (285-295) 09/23/24 02:10 Calcium 9.1 mg/dL (8.5-10.5) 09/23/24 02:10 Total Bilirubin 0.2 mg/dL (0.15-1.2) 09/23/24 02:10 AST 17 U/L (0-32) 09/23/24 02:10 ALT 8 U/L (0-33) 09/23/24 02:10 Alkaline Phosphatase 51 U/L (35-105) 09/23/24 02:10 Total Protein 7.0 g/dL (6.6-8.7) 09/23/24 02:10 Albumin 4.1 g/dL (3.5-5.2) 09/23/24 02:10 Globulin 2.9 g/dL (1.3-4.6) 09/23/24 02:10 Ethyl Alcohol 90 mg/dL (0-10) H 09/23/24 02:10 All radiology interpretation(s) finalized by discharge Discharge Plan Discharge Patient Disposition: Home Clinical Impression: Alcohol intoxication, Acute dyspnea Condition: Stable Prescriptions: No Action paroxetine HCl [Paxil] 10 mg tablet 10 mg PO DAILY montelukast 10 mg tablet 10 mg PO DAILY albuterol sulfate 90 mcg/actuation aerosol powdr breath activated 2 inh inhalation Q4H PRN paroxetine HCl [Paxil] 10 mg tablet 10 mg PO DAILY Qty: 21 0RF atomoxetine [Strattera] 60 mg capsule 60 mg PO DAILY mirtazapine [Remeron] 15 mg tablet 15 mg PO DAILY ondansetron 4 mg tablet,disintegrating 4 mg PO Q6H PRN (Reason: nausea and vomiting) Qty: 12 0RF Rx Instructions: 340b please prednisone 20 mg tablet 20 mg PO DAILY 5 Days Qty: 5 0RF azithromycin 500 mg tablet 500 mg PO DAILY 5 Days Qty: 5 0RF Discharge Orders: Discharge ED (Routine); Ordered 09/23/24 Ordered By: Ayad Jacques Patient Instructions: Alcohol Intoxication (ED), Opioid Safety, Pain Management, Patient Portal & Trini Instructions Activity Restrictions/Additional Instructions: Avoid alcohol. Return for worsening shortness of breath, fever, cough, other concerning symptoms. See your doctor for follow-up appointment this week. Print Language: Cook Islander Coding Level of Care Code ED Director Game for Dolores Nathan
[2024-09-23] MEDS: LORazepam 1 MG/0.5 ML injection IVP (02:09)
--- NOTE | 2024-09-23 02:15 | ECG_ITS ---
[facility] Date: 2024-09-23 Pat Name: Romeo Rojas Department: Room: Gender: Female Audit Associate: : 1990 Requested By: Ayad Jimenez Order Number: [id number] Reading MD: Measurements Intervals [place] Rate: 70 P: 62 IN: 180 QRS: 70 QRSD: 91 T: 34 QT: 305 QTc: 330 Interpretive Statements SINUS RHYTHM WITH MARKED SINUS ARRHYTHMIA NONSPECIFIC T-WAVE ABNORMALITY No previous ECG available for comparison [email or web address]
[2024-09-23 02:24] VITALS: PULSE 89; RESP 17; O2SAT 99
[2024-09-23 02:30] VITALS: PULSE 85
[2024-09-23 02:30] LABS: Hematocrit 36.8 % (36-47); Hemoglobin 12.30 g/dL (11.27-16.99); Mean Corpuscular HGB Conc 33.4 g/dL (30-55); Mean Corpuscular Hemoglobin 31.4 pg (27-33); Mean Corpuscular Volume 93.9 fl (85-98); Nucleated Red Blood Cells % 0 %; Platelet Count 263 10^3/cmm (157-399); Red Blood Count 3.92 10^6/uL (3.85-5.65); White Blood Count 10.76 10^3/uL (3.29-11.43)
[2024-09-23 02:40] LABS: Alanine Aminotransferase 8 U/L (0-33); Albumin Level 4.1 g/dL (3.5-5.2); Alcohol Level 90 mg/dL (0-10); Alkaline Phosphatase 51 U/L (35-105); Blood Urea Nitrogen 7 mg/dL (6-20); Calcium 9.1 mg/dL (8.5-10.5); Carbon Dioxide 19 mmol/L (22-29); Chloride 106 mmol/L (98-107); Creatinine Clr Calc Pharmacy 98.6186; Globulin 2.9 g/dL (1.3-4.6); Glucose 90 mg/dL (65-115); Osmolality Calculated 292 mOsm/kg (285-295); Sodium 142 mmol/L (136-145); Total Protein 7.0 g/dL (6.6-8.7)
[2024-09-23 02:42] LABS: Anion Gap 20.6 (5-19); Aspartate Amino Transferase 17 U/L (0-32); Potassium 3.6 mmol/L (3.5-5.1)
[2024-09-23 03:23] VITALS: BP 103/60; PULSE 78; RESP 15; O2SAT 99
[2024-09-23 05:25] VITALS: BP 96/60; PULSE 82; RESP 15; O2SAT 99
== END 2024-09-23 04:20 | disposition home or self-care (01) ==
PROVIDERS: Emergency Provider Emergency Medicine
DX: F10.129 Alcohol abuse with intoxication, unspecified (principal); Y90.4 Blood alcohol level of 80-99 mg/100 ml; R06.09 Other forms of dyspnea; F17.290 Nicotine dependence, other tobacco product, uncomplicated
CPT/HCPCS: 71045; 80053; 80307; 85025; 93005; 93010; 94640; 96374; 99285; J2060; J9999

== ENCOUNTER → 2024-10-14 12:09 | Outpatient (BNVA) | payer MEDICAID, SELFPAY | PROVIDERS: Visit Provider Emergency Medicine | DX: J02.9 Acute pharyngitis, unspecified (principal) | CPT/HCPCS: 87426 ==

== ENCOUNTER 2024-10-15 19:53 | Emergency (ER) | payer MEDICAID, SELFPAY ==
--- OUTSIDE RECORDS SUMMARY | 2024-10-15 19:57 | XMS_ITS | Data Portability ---
Author Organization AF[facility], [facility] Address [address] [facility] [address] [place] [address] Assessment Encounter Date Assessment Date Assessment LastModified [...] serum or plasma 2024 025 DARNELL [facility], [address] [facility] [address], [address], [place], [address], 5 16:28:43 CMP, serum or plasma 2023 024 DARNELLIRMA [facility], [address] [facility] [address], [address], [place], [address], 4 14:13:17 lipid panel, blood 2023 024 [facility], [address] [facility], [facility] [address], [address], 4 14:13:20 CBC 2023 024 [facility], [address] [facility], [facility] [address], [place], [address], 4 12:52:27 TSH, serum or plasma 2023 024 [facility] ([facility]), [address] [place], [address], 4 13:22:39 Referral primary care provider referral 2023 024 [email or web address] Not available 4 10:43:00 psychiatris t referral 2023 024 [email or web address] Not available 4 11:51:04 Procedures None recorded. Surgeries None recorded. Imaging XR, hip, unilateral, 2 or 3 view 2024 025 [facility] ([facility]), [address] [place], [address], 5 08:35:30 PFT, complete [email or web address] [place] [address] (Scheduling Orders), [address] [place], [address], 4 10:15:18 Medication Orders Paxil 10 mg tablet 2024 025 [facility] [place], [address] [place], [address], 5 16:26:19 ProAir HFA 90 mcg/actuati on aerosol inhaler 2023 025 [facility]acy #[id number], [address], [address], [place], [address], 5 15:11:17 Paxil 10 mg tablet 2023 024 [email or web address] 9 [facility]acy #[id number], [address] [facility] [address], [address], [place], [address], 5 15:11:10 meloxicam 7.5 mg tablet 2023 024 [facility]acy #[id number], [address], [address], [place], [address], 14:21:37 Patient TargetsNo targets recorded. Patient Instructions Encounter Date Encounter Id Patient Instructions Last Modified By Organization Details Last Modified Time 01/30/2024 [id number] Call or return for questions or concerns. Not available 01/30/2024 11:33:27 07/02/2024 [id number] Call or return for questions or concerns. [...] 9.3 x10 4.0-10 .5 Not Available [facility] [address] [facility] [address], [place], [address], 01/30/2024 12:52:26 01/30/20 24 01/30/2024 CBC RBC 4.23 x10 3.50-5 .50 Not Available [facility] [address] [facility] [address], [place], [address], 01/30/2024 12:52:26 01/30/20 24 01/30/2024 CBC HGB 13.5 g/dL 12.0-1 6.0 Not Available [facility] [address], [place], [address], 01/30/2024 12:52:26 01/30/20 24 01/30/2024 CBC HCT 39.6 % 37.0-4 7.0 Not Available [facility] [address], [place], [address], 01/30/2024 12:52:26 01/30/20 24 01/30/2024 CBC MCV 93.6 fL 80.0-9 9.9 Not Available [facility] [address] [facility] 1, [place], [address], 01/30/2024 12:52:26 01/30/20 24 01/30/2024 CBC MCH 31.8 pg 27.0-3 2.0 Not Available [facility] [address], [place], [address], 01/30/2024 12:52:26 01/30/20 24 01/30/2024 CBC MCHC 34.0 g/dL 32.0-3 6.0 Not Available [facility] [address], [place], [address], 01/30/2024 12:52:26 01/30/20 24 01/30/2024 CBC RDW 14.3 % 11.5-1 4.5 Not Available [facility] [address], [place], [address], 01/30/2024 12:52:26 01/30/20 24 01/30/2024 CBC plt 245.7 x10 140.0- 451.0 Not Available [facility] [address] [facility] 1, [place], [address], 01/30/2024 12:52:26 01/30/20 24 01/30/2024 CBC lymphocytes % 25.1 % 20.0-5 0.0 Not Available [facility] [address] [facility] [address], [place], [address], 01/30/2024 12:52:26 01/30/20 24 01/30/2024 CBC granulcytes % 65.4 % 30.0-7 0.0 Not Available [facility] [address] [facility] [address] [facility] 1, [place], [address], 01/30/2024 12:52:26 01/30/20 24 01/30/2024 CBC monocytes % 6.6 % 2.0-16 .0 Not Available [facility] [address] [place] [address] [facility] 1, [place], [address], 01/30/2024 12:52:26 01/30/20 24 01/30/2024 CBC granulcytes# 6.1 x10 Not Brenda ilable [facility] [address] [facility] [address] [facility] 1, [place], [address], 01/30/2024 12:52:26 01/30/20 24 01/30/2024 CBC lymphocytes # 2.3 x10 Not Available [facility] [address] [facility] [address] [facility] 1, [place], [address], 01/30/2024 12:52:26 01/30/20 24 01/30/2024 CBC monocytes # 0.6 x10 Not Avai lable [facility] [address] [facility] [address] [facility] 1, [place], [address], 01/30/2024 12:52:26 01/30/20 24 01/30/2024 CMP (FEMA LE) glucose 95.0 mg/dL 60.0-9 9.0 Not Available [facility] [address] [facility], [place], [address], 01/30/2024 14:13:17 01/30/20 24 01/30/2024 CMP (FEMA LE) BUN (blood urea nitrogen) 11.0 mg/dL 10.0-2 6.0 Not Available [facility] [address] [facility] [address], [place], [address], 01/30/2024 14:13:17 01/30/20 24 01/30/2024 CMP (FEMA LE) creatinine (serum) 0.7 mg/dL 0.4-1. 5 Not Available [facility] [address] [facility] [address], [place], [address], 01/30/2024 14:13:17 01/30/20 24 01/30/2024 CMP (FEMA LE) BUN/creatini ne ratio 15.07 ratio Not Available [facility] [address] [facility] 1, [place], [address], 01/30/2024 14:13:17 01/30/2001/30/2024 CMP (FEMA LE) eGFR calculated 98.8 Not Available [facility] [address] [facility] 1, [place], [address], 01/30/2024 14:13:17 01/30/20 24 01/30/2024 CMP (FEMA LE) total protein 7.9 g/dL 6.0-8. 5 Not Available [facility] [address] [facility] 1, [place], [address], 01/30/2024 14:13:17 01/30/20 24 01/30/2024 CMP (FEMA LE) total bilirubin 0.4 mg/dL 0.2-1. 3 Not Available [facility] [address] [address], [place], [address], 01/30/2024 14:13:17 01/30/20 24 01/30/2024 CMP (FEMA LE) albumin 4.7 g/dL 3.5-5. 5 Not Available [facility] [address], [place], [address], 01/30/2024 14:13:17 01/30/20 24 01/30/2024 CMP (FEMA LE) globulin 3.2 calc Not Available [facility] [address] [place] [address], [place], [address], 01/30/2024 14:13:17 01/30/20 24 01/30/2024 CMP (FEMA LE) AST (SGOT) 18.0 U/L 0.0-46 .0 Not Available [facility] [address] [facility] 1, [place], [address], 01/30/2024 14:13:17 01/30/20 24 01/30/2024 CMP (FEMA LE) altv (SGPT) 14.0 U/L 13.0-6 9.0 normal Not Available [facility] [address] [facility] 1, [place], [address], 01/30/2024 14:13:17 01/30/20 24 01/30/2024 CMP (FEMA LE) A/G ratio 1.5 ratio Not Available [facility] [address], [place], [address], 01/30/2024 14:13:17 01/30/20 24 01/30/2024 CMP (FEMA LE) ALP phos 47.0 U/L 30.0-1 40.0 normal Not Available [facility] [address] [place] [address] [facility] 1, [place], [address], 01/30/2024 14:13:17 01/30/20 24 01/30/2024 CMP (FEMA LE) calcium 9.7 mg/dL 8.4-10 .5 Not Available [facility] [address] [facility] 1, [place], [address], 01/30/2024 14:13:17 01/30/2001/30/2024 CMP (FEMA LE) sodium 140.0 mmol/ L 136.0- 145.0 Not Available [facility] [address] [facility] 1, [place], [address], 01/30/2024 14:13:17 01/30/2001/30/2024 CMP (FEMA LE) potassium 4.2 mmol/ L 3.5-5. 1 Not Available [facility] [address] [facility] 1, [place], [address], 01/30/2024 14:13:17 01/30/2001/30/2024 CMP (FEMA LE) chloride 105.0 mmol/ L 98.0-1 10.0 normal Not Available [facility] [address] [facility] 1, [place], [address], 01/30/2024 14:13:17 01/30/20 24 01/30/2024 CMP (FEMA LE) C02 28.0 mmol/ L 22.0-3 1.0 Not Available [facility] [address] [facility] 1, [place], [address], 01/30/2024 14:13:17 01/30/2001/30/2024 CMP (FEMA LE) anion gap 7.0 calc Not Available [facility] [address] [facility] 1, [place], [address], 01/30/2024 14:13:17 01/30/2001/30/2024 CMP (FEMA LE) osmolality 288.4 calc Not Available [facility] [address] [facility] 1, [place], [address], 01/30/2024 14:13:17 01/30/20 24 01/30/2024 LIPID PROFI LE (FEMA LE) cholesterol 169.0 mg/dL 0.0-20 0.0 Not Available [facility] [address] [facility] [address], [place], [address], 01/30/2024 14:13:20 01/30/20 24 01/30/2024 LIPID PROFI LE (FEMA LE) trig 83.0 mg/dL 0.0-15 0.0 Not Available [facility] [address] [facility] 1, [place], [address], 01/30/2024 14:13:20 01/30/20 24 01/30/2024 LIPID PROFI LE (FEMA LE) HDL - direct 49.0 mg/dL >40.0 Not Available [facility] [address] [facility] 1, [place], [address], 01/30/2024 14:13:20 01/30/20 24 01/30/2024 LIPID PROFI LE (FEMA LE) VLDL - direct 16.6 mg/dL Not Available [facility] [address] [facility] 1, [place], [address], 01/30/2024 14:13:20 01/30/20 24 01/30/2024 LIPID PROFI LE (FEMA LE) LDL - direct 103.4 mg/dL 0.0-13 0.0 Not Available [facility] [address] [facility] 1, [place], [address], 01/30/2024 14:13:20 01/30/20 24 01/30/2024 TSH, serum or plasm a TSH 0.71 uIU/m L 0.49-3 .82 normal Not Available [facility] ([facility]) [address] [place], [address], 01/30/2024 11:13:06 07/03/19 25 07/02/2024 CMP (FEMA LE) glucose 79.0 mg/dL 60.0-9 9.0 Not Available [address] [address], [place], [address], 07/02/2024 16:28:43 07/03/19 25 07/02/2024 CMP (FEMA LE) BUN (blood urea nitrogen) 8.0 mg/dL 10.0-2 6.0 low Not Available [address] [address], [place], [address], 07/02/2024 16:28:43 07/03/19 25 07/02/2024 CMP (FEMA LE) creatinine (serum) 0.8 mg/dL 0.4-1. 5 Not Available [address] [address], [place], [address], 07/02/2024 16:28:43 07/03/19 25 07/02/2024 CMP (FEMA LE) BUN/creatini ne ratio 10.00 ratio Not Available [address] [address], [place], [address], 07/02/2024 16:28:43 07/03/19 25 07/02/2024 CMP (FEMA LE) eGFR calculated 88.9 Not Available [facility] [address] [address], [place], [address], 07/02/2024 16:28:43 07/03/19 25 07/02/2024 CMP (FEMA LE) total protein 7.6 g/dL 6.0-8. 5 Not Available [address] [address], [place], [address], 07/02/2024 16:28:43 07/03/19 25 07/02/2024 CMP (FEMA LE) total bilirubin 0.5 mg/dL 0.2-1. 3 Not Available [facility] [address] [facility] 1, [place], [address], 07/02/2024 16:28:43 07/03/19 25 07/02/2024 CMP (FEMA LE) albumin 4.5 g/dL 3.5-5. 5 Not Available [facility] [address] [facility] 1, [place], [address], 07/02/2024 16:28:43 07/03/19 25 07/02/2024 CMP (FEMA LE) globulin 3.1 calc Not Available [facility] [address] [facility] 1, [place], [address], 07/02/2024 16:28:43 07/03/19 25 07/02/2024 CMP (FEMA LE) AST (SGOT) 22.0 U/L 0.0-46 .0 Not Available [facility] [address] [facility] 1, [place], [address], 07/02/2024 16:28:43 07/03/19 25 07/02/2024 CMP (FEMA LE) altv (SGPT) 28.0 U/L 13.0-6 9.0 normal Not Available [facility] [address] [facility] 1, [place], [address], 07/02/2024 16:28:43 07/03/19 25 07/02/2024 CMP (FEMA LE) A/G ratio 1.5 ratio Not Available [facility] [address] [facility] 1, [place], [address], 07/02/2024 16:28:43 07/03/19 25 07/02/2024 CMP (FEMA LE) ALP phos 45.0 U/L 30.0-1 40.0 normal Not Available [facility] [address] [facility] 1, [place], [address], 07/02/2024 16:28:43 07/03/19 25 07/02/2024 CMP (FEMA LE) calcium 9.6 mg/dL 8.4-10 .5 Not Available [facility] [address] [facility] 1, [place], [address], 07/02/2024 16:28:43 07/03/19 25 07/02/2024 CMP (FEMA LE) sodium 142.0 mmol/ L 136.0- 145.0 Not Available [facility] [address] [facility] 1, [place], [address], 07/02/2024 16:28:43 07/03/19 25 07/02/2024 CMP (FEMA LE) potassium 4.4 mmol/ L 3.5-5. 1 Not Available [facility] [address] [facility] 1, [place], [address], 07/02/2024 16:28:43 07/03/19 25 07/02/2024 CMP (FEMA LE) chloride 105.0 mmol/ L 98.0-1 10.0 normal Not Available [facility] [address] [facility] 1, [place], [address], 07/02/2024 16:28:43 07/03/19 25 07/02/2024 CMP (FEMA LE) C02 31.0 mmol/ L 22.0-3 1.0 Not Available [facility] [address] [facility] 1, [place], [address], 07/02/2024 16:28:43 07/03/19 25 07/02/2024 CMP (FEMA LE) anion gap 6.0 calc Not Available [facility] [address] [facility] [address], [place], [address], 07/02/2024 16:28:43 07/03/1907/02/2024 CMP (FEMA LE) osmolality 290.6 calc Not Available [facility] [address], [place], [address], 07/02/2024 16:28:43 07/04/1907/02/2024 XR, hip, unila teral , 2 or 3 view No observ ation record ed. [email or web address] [facility] [address], [place], [address], 07/04/2024 14:51:45 Result Notes None recorded. Problems Name Problem SNOMED Code Status Onset Date Resolution Date Notes Provider Name and Address Organization Details Recorded Time Mixed anxiety and depressive disorder 859486653 Active 2024 RACHAEL payton [facility] 13:02:29 Ben de la Tourette's syndrome 4096025 Active 2024 RACHAEL payton [facility] 17:54:27 Adult attention deficit hyperactivity disorder 153550820 Active 2024 RACHAEL payton [facility] 17:54:37 Posttraumatic stress disorder 94120883 Active 2024 RACHAEL payton [facility] 17:54:48 Psychophysiolo gic insomnia 184991449 Active 2024 RACHAEL payton [facility] 17:55:13 Recurrent major depression 21386305 Active 2024 RACHAEL payton [facility] 17:55:41 Cannabis dependence 24979440 [facility] 20[facility] 5 17:55:55 Problem Notes None recorded. Procedures Surgical History Date Name Laterality Status Provider Name and Address Organization Details Recorded Time 07/03/19 25 plain X-ray of right hip completed RACHAEL DURAND [facility] 07/04/2024 14:51:26 fallopian tube excision completed RACHAEL DURAND [facility] 01/30/2024 11:06:56 tonsillectomy completed [facility] 07/02/2024 15:16:19 Imaging Results None recorded. Procedure Notes None recorded. Medical Equipment None Reported. Allergies Allergen ID Allergen Name Allergen Category Reaction Reaction Severity Criticality Documentation Date Start Date Code Code System Note Provider Name and Address Organization Details Recorded Time 04819 Effexor medicatio n Not available Not available Not available 01/30/2024 01640 2 RxNorm [facility] 4 10:51:44 94552 Haldol medicatio n Not available Not available Not available 01/30/2024 18902 9 RxNorm Psych osis [facility] 4 10:52:01 86277 Keflex medicatio n Not available Not available Not available 01/30/202454528 7 RxNorm Hives /itch ing [facility] 4 10:52:13 42865 Klonopin medicatio n Not available Not available Not available 01/30/202432029 5 RxNorm [facility]ives [facility] 4 10:52:24 88427 morphine medicatio n Not available Not available Not available 01/30/2024 7052 RxNorm sob/h magali [facility] 4 10:52:37 54640 Ultram medicatio n Not available Not available Not available 01/30/2024 48323 6 RxNorm hives RACHAEL LADARIUS payton [facility] [place] 4 10:52:47 19906 buspirone medicatio n Not available Not available Not available 01/30/2024 1827 RxNorm unkno wn RACHAEL DURAND tata [facility] [place] 4 10:54:27 Medications Name Sig [...] Updated DateTime 5 165.1 cm 22.5 kg/m2 00640.9 7 g 99 % 99 % 90 /min 18 /min 124/60 mm[Hg] [facility] 5 15:10:26 Date Recorded Body weight Body mass index (BMI) Body height Oxygen saturation Oxygen saturation in Arterial blood by Pulse oximetry Heart rate Respiratory rate Systolic And Diastolic Provider Name and Address Organization Details Last Updated DateTime 4 92397.0 5 g 20.8 kg/m2 165.1 cm 99 % 99 % 70 /min 18 /min 102/68 mm[Hg] RACHAEL DURAND [facility] 4 10:51:03 Social History Question Answer Notes LastModified by Organizat ion Details LastModified Time Tobacco Smoking Status Former Smoker smoked for about 5 years DARCY GIBSON, [address], [address], [facility] 01/30/2024 11:38:12 What Is Your Level Of Caffeine Consumption? Moderate [email or web address] Information not available 01/30/2024 Which Illicit Or Recreational Drugs Have You Used? Marijuana Information not available 01/30/2024 When Did You Quit Smoking? 6-10yearssinc elastcigarett e Information not available 01/30/2024 What Was The Date Of Your Most Recent Tobacco Screening? 01/30/2024 Information not available 01/30/2024 What Is Your Current Pack Years? 10packyears Information not available 01/30/2024 What Is Your Relationship Status? [email or web address] Information not available 01/30/2024 At What Age [...] illicit or recreational drugs? Yes Smokes THC [email or web address] Information not available 01/30/2024 Do you or have you ever used any other forms of tobacco or nicotine? Yes Information not available 01/30/2024 What is your level of alcohol consumption? Occasional [email or web address] Information not available 01/30/2024 Do you or have you ever used smokeless tobacco? Never used smokeless tobacco Information not available 01/30/2024 Are you currently employed? Yes [email or web address] Information not available 01/30/2024 Are you able to walk? YESWOREST [email or web address] Information not available 01/30/2024 Are you able to care for yourself independently? Yes [email or web address] Information not available 01/30/2024 Do you or [...] Organization Details LastModified Time Mother Essential hypertension [email or web address] Not available 10:55:24 Mother Fibromyalgia [email or web address] Not brenda ilable 01/30/2024 10:55:39 Mother Hypothyroidi sm [email or web address] Not available 01/29 10:55:49 Maternal Grandmother Malignant tumor of thyroid gland [email or web address] Not available 01/29 10:56:02 Maternal Grandmother Lupus erythematosu s [email or web address] Not available 01/29 10:56:10 Maternal Grandmother Type 2 diabetes mellitus Not available 01/29 10:56:19 Maternal Grandmother Leukemia [email or web address] Not available 10:56:27 Medical History Condition Response Anxiety Disorder Y Headaches Y Mental Illness Y Reflux/GERD Y Depression Y Gynecological HistoryNo gynecological history recorded. Obstetrics History GPAL:G 0 P 0 0 0 0 Immunizations Vaccine Type Date Status Note Provider Nam e and Address Organization Details Recorded Time Influenza, split virus, trivalent, PF 01/30/2024 completed ELENA HUBBARD [address] [place] [address], [id number], [facility] 01/31/2024 12:43:54 Past Encounters Encounter ID Performer Location Encounter Start Date Encounter Closed Date Diagnosis/Indication Diagnosis SNOMED-CT Code Diagnosis ICD10 Code Diagnosis Note [id number] ELENA HUBBARD [facility] ([facility]) [address] [place] [id number] 01/30/2024 09:51:03 01/30/2024 11:47:53 Adult health examination 541718609 Z00.00 Depressive disorder 3548 9007 F32.A Right side sciatica 3202 101193 88766 M54.31 Injection of Toradol. She took Prednisone for 3 days following and it was helpful as well as Norflex. Unintentio nal weight loss 492741062 R63.4 Dyspnea 335689087 R06.00 Abdominal pain 77654181 R10.9 Administra tion of influenza vaccine 40418938 Z23 Insomnia 123786867 G47.0 0 She will try to add Magnesium Glycinate. Reduced libido 8346373 R 68.82 She has tried the pink pill and other herbal remedies without help. [id number] ELENA HUBBARD [facility] ([facility]) [address] [place] [phone] 07/02/2024 14:45:04 07/02/2024 15:39:43 Pain of right hip joint 4673927423 45176 M25.551 Mixed anxi ety and depressive disorder 421912684 F41.8 Discussed serotonin syndrome and symptoms, handout provided. Health Concerns Section Related Observation LastModified by Organization Detai ls LastModified Time None Recorded Concern Status LastModified by Organization Details LastModified Time None Recorded Advance Directives Directive None Recorded Payers Insurance Date Sequence Insurance Name Policy Number Policy [place] Covered Member ID Medellin Member ID Guarantor Name 10/01/2024 1 THE [employer] [id number] [facility] [id number] [facility] 10/01/2024 1 *SELF PAY* [facility] Episode No OBEpisode recorded.
--- OUTSIDE RECORDS SUMMARY | 2024-10-15 19:57 | XMS_ITS | Clinical Summary ---
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 Name Role Phone Unavailable Primary Care Provider Unavailabl e Allergies Active Allergy Reactions Criticality Noted Date Comments Cephalexin Hives High 12/16/2021 Clonazepam Hives High 12/16/2021 Diazepam Hives High 12/16/2021 Haloperidol Lactate Hallucination Low 12/16/2021 Hydrocodone-Acetaminophen Hives High 12/16/2021 Morphine Hives High 12/16/2021 Oxycodone Hives High 12/16/2021 Tramadol Hives High 12/16/2021 Medications vit-iron fumarate-fa (SHAIAN ) 28 mg iron- 800 mcg Tablet [...] drink = 0.6 oz pur e alcohol) Comments No Sex and Gender Information Value Date Recorded Sex Assigned at Not on file Legal Sex Female 9:58 AM CDT Gender Identity Not on file Sexual Orientation Not on file Last Filed Vital Signs Vital Sign Reading Time Taken Comments Blood Pressure 102/56 01/21/2024 9:15 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 Pulse 55 01/21/2024 9:15 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 Temperature 37.1 C (98.7 F) 01/21/2024 7:59 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 Respiratory Rate 17 01/21/2024 9:15 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 Oxygen Saturation 99% 01/21/2024 9:15 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 Inhaled Oxygen Concentration - - Weight 52.2 kg (115 lb) 01/21/2024 7:59 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 Height 157.5 cm (5' 2 ) 01/21/2024 7:59 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 Body Mass Index 21.03 01/21/2024 7:59 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 Plan of Treatment Health Maintenance Due Date Last Done Comments HPV VACCINES (2 - 2-dose series) 09/19/2007 03/21/19 08 HEPATITIS B VACCINES (1 of 3 - 19+ 3-dose series) 10/03/2011 HPV/Cotest (21-29) 2013 CERVICAL CANCER SCREENING 2022 HPV/Cotest (30-65) 2022 PAP SMEAR 2022 COVID-19 Vaccine (3 - 2023-2 5 season) 2023 12/28/2020, 12/01/2020 INFLUENZA VACCINE (#1) 2024 7, 12/26/2016, 01/02/2014, Additional history exists DTAP/TDAP/TD VACCINES (3 - T d or Tdap) 03/15/2025 03/15/2015, 11/26/2012 Insurance [employer]
[2024-10-15 19:58] VITALS: BP 101/65; PULSE 85; RESP 28; TEMP 36.7; O2SAT 99
--- NOTE | 2024-10-15 20:06 | XRR_ITS ---
PROCEDURE INFORMATION: Exam: XR Chest Exam date and time: 10/15/2024 8:13 PM Age: 34 years old Clinical indication: Shortness of breath; Additional info: SOB TECHNIQUE: Imaging protocol: Radiologic exam of the chest. Views: 1 view. COMPARISON: CR (CHEST, ) 09/23/2024 1:58 AM FINDINGS: Lungs: Streaky subsegmental left retrocardiac opacity. Pleural spaces: Unremarkable. No pleural effusion. No pneumothorax. Heart/Mediastinum: Unremarkable. No cardiomegaly. Bones/joints: Unremarkable. XR/XR chest 1V portable [id number] IMPRESSION: Streaky subsegmental left retrocardiac opacity favored to represent atelectasis. Superimposed infection can not be excluded.
--- NOTE | 2024-10-15 20:06 | ECG_ITS ---
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 Measurements Intervals [place] Rate: 67 P: 54 VA: 174 QRS: 63 QRSD: 89 T: 51 QT: 403 QTc: 426 Interpretive Statements SINUS RHYTHM Compared to ECG 09/23/2024 02:15:21 Sinus arrhythmia no longer present T-wave abnormality no longer present Electronically Signed On 10-17-2024 10:25:29 CDT by Maverick Moise M.D. [email or web address]
--- NOTE | 2024-10-15 20:50 | CTR_ITS ---
PROCEDURE INFORMATION: Exam: CTA Chest With Contrast Exam date and time: 10/15/2024 9:54 PM Age: 34 years old Clinical indication: Shortness of breath; Additional info: SOB TECHNIQUE: Imaging protocol: Computed tomographic angiography of the chest with contrast. Exam focused on the arteries. 3D rendering (Not supervised by radiologist): MIP and/or 3D reconstructed images were created by the technologist. Radiation optimization: All CT scans at this facility use at least one of these dose optimization techniques: automated exposure control; mA and/or kV adjustment per patient size (includes targeted exams where dose is matched to clinical indication); or iterative reconstruction. Contrast material: OMNIPAQUE 350; Contrast volume: 100 ml; Contrast route: INTRAVENOUS (IV); COMPARISON: CR (CHEST, ) 10/15/2024 8:13 PM RADIATION DOSE METRICS: Total DLP (mGy-cm): 257.26 FINDINGS: Pulmonary arteries: Normal. No pulmonary emboli. Aorta: Unremarkable. No aortic aneurysm. No aortic dissection. Lungs: Unremarkable. No consolidation. No masses. Subsegmental dependent atelectasis. Pleural spaces: Unremarkable. No pneumothorax. No pleural effusion. Heart: Unremarkable. No cardiomegaly. No pericardial effusion. Lymph nodes: Unremarkable. No enlarged lymph nodes. Bones/joints: Unremarkable. No acute fracture. Soft tissues: Unremarkable. CT/CT angio chest PE protcl [id number] IMPRESSION: No pulmonary emboli. No acute thoracic abnormality.
[2024-10-15] MEDS: methylPREDNISolone sod succ 125 mg/2 mL INJ IVP (21:01)
[2024-10-15 21:04] VITALS: BP 110/70; PULSE 58; RESP 22; O2SAT 99
--- NOTE | 2024-10-15 21:07 | W.ED.SOB ---
HPI - SOB/Dyspnea General: Chief Complaint: Shortness of Breath/Dyspnea Stated Complaint: Hard time breathing Time Seen by Provider: 10/15/24 20:46 History of Present Illness: HPI Narrative: 34-year-old female with a history of asthma who presents to the emergency room with shortness of breath. She says she feels like she is drowning. She is very tachypneic on presentation but her lung rausch are clear. She does have some upper respiratory noise. She was urgent care couple days ago and was told she had pneumonia and was started on steroid she tells me. Says symptoms have continued to get worse. No lower extremity swelling. No fevers. She has had some cough. She says her inhaler did not help today. Related Data Home Medications ?Medication ?Instructions ?Recorded ?Confirmed albuterol sulfate 90 mcg/actuation 2 inh inhalation Q4H PRN 08/25/23 10/14/24 breath activated powder inhaler montelukast 10 mg tablet 10 mg PO DAILY 08/25/23 10/14/24 paroxetine HCl 10 mg tablet (Paxil) 10 mg PO DAILY 08/25/23 10/14/24 atomoxetine 60 mg capsule 60 mg PO DAILY 04/08/24 10/14/24 (Strattera) mirtazapine 15 mg tablet (Remeron) 15 mg PO DAILY 04/08/24 10/14/24 Previous Rx's ?Medication ?Instructions ?Recorded paroxetine HCl 10 mg tablet (Paxil) 10 mg PO DAILY #21 tabs 08/25/23 ondansetron 4 mg disintegrating 4 mg PO Q6H PRN nausea and 04/08/24 tablet vomiting #12 tabs azithromycin 500 mg tablet 500 mg PO DAILY 5 days #5 tabs 08/21/24 prednisone 20 mg tablet 20 mg PO DAILY 5 days #5 tabs 08/21/24 albuterol sulfate 90 mcg/actuation 2 inh inhalation Q4H PRN shortness 10/14/24 aerosol inhaler (Ventolin HFA) of breath or wheezing #6.7 grams levofloxacin 750 mg tablet 750 mg PO DAILY 7 days #7 tabs 10/14/24 prednisone 20 mg tablet 60 mg (3 x 20 mg) PO DAILY 5 days 10/14/24 #15 tabs albuterol sulfate 90 mcg/actuation 2 inh inhalation Q4H PRN shortness 10/15/24 aerosol inhaler of breath or wheezing #6.7 grams doxycycline hyclate 100 mg capsule 100 mg PO BID 7 days #14 caps 10/15/24 prednisone 20 mg tablet 60 mg (3 x 20 mg) PO DAILY 5 days 10/15/24 #15 tabs Allergies Allergy/AdvReac Type Severity Reaction Status Date / Time diazepam (From Valium) Allergy Severe aggitation Verified 10/15/24 20:01 haloperidol (From Haldol) Allergy Severe ADR-Agitate Verified 10/15/24 20:01 d sertraline (From Zoloft) Allergy Severe panic Verified 10/15/24 20:01 atacks/ buspirone Allergy Intermediate ADR-Agitate Verified 10/15/24 20:01 d cephalexin (From Keflex) Allergy Intermediate rash Verified 10/15/24 20:01 clonazepam Allergy Intermediate delusions Verified 10/15/24 20:01 morphine Allergy Intermediate vomitng Verified 10/15/24 20:01 and rash tramadol (From Ultram) Allergy Intermediate hives Verified 10/15/24 20:01 venlafaxine (From Effexor) Allergy Intermediate rash Verified 10/15/24 20:01 prozac Allergy Severe anxiety Uncoded 10/15/24 20:01 lortab Allergy Intermediate vomiting/ra Uncoded 10/15/24 20:01 Review of Systems Narrative: Constitutional symptoms: Negative except as documented in HPI. Skin symptoms: Negative except as documented in HPI. Eye symptoms: Negative except as documented in HPI. ENMT symptoms: Negative except as documented in HPI. Respiratory symptoms: Negative except as documented in HPI. Cardiovascular symptoms: Negative except as documented in HPI. Gastrointestinal symptoms: Negative except as documented in HPI. Genitourinary symptoms: Negative except as documented in HPI. Musculoskeletal symptoms: Negative except as documented in HPI. Neurologic symptoms: Negative except as documented in HPI. Psychiatric symptoms: Negative except as documented in HPI. Endocrine symptoms: Negative except as documented in HPI. PFSH ED PFSH: Social History Smoking and tobacco/nicotine status: never used tobacco/nicotine Physical Exam Narrative: EXAM NARRATIVE: General: Alert, no acute distress. Skin: Warm, dry. Head: Normocephalic, atraumatic. Neck: Supple, trachea midline. Eye: Extraocular movements are intact. Ears, nose, mouth and throat: mucosa moist. Cardiovascular: Regular, Normal peripheral perfusion. Respiratory: Lungs are clear to auscultation, patient is fairly tachypneic, breath sounds are equal, Symmetrical chest wall expansion. Gastrointestinal: Soft, Nontender, Non distended Musculoskeletal: Normal ROM, no deformity. Neurological: Alert and oriented, No focal neurological deficit observed. Psychiatric: Cooperative, appropriate mood & affect. Course Vital Signs: Vital signs: Vital Signs Temperature 98.0 F 10/15/24 19:58 Pulse Rate 61 10/15/24 22:00 Respiratory Rate 17 10/15/24 21:38 Blood Pressure 110/70 10/15/24 21:04 Pulse Oximetry 98 10/15/24 22:00 Oxygen Delivery Me thod Room Air 10/15/24 22:00 MDM - SOB/Dyspnea Medical Decision Making Differential diagnosis for patient with shortness of breath includes but is not limited to and based on the above HPI, review of systems and physical exam: Pneumonia. Bronchitis. Asthma or COPD with acute exacerbation. Acute coronary syndrome / GA. Pulmonary embolism. Anxiety. Congestive heart failure. Viral infections including influenza and Covid-19. Atrial fibrillation. Anxiety. Pleural effusion. Pneumothorax. Orders placed to evaluate differential diagnosis based on the above differential, HPI and physical exam EKG: Time 2108. Rate 67. Normal sinus rhythm, No ST-T changes, no ectopy, normal UT & QRS intervals, This was reviewed and interpreted by myself the ER physician at 2111 Chest x-ray: Radiology read as retrocardiac opacity. A CTA was ordered to rule this out and to rule out PE. No acute process. No infiltrate. No pneumothorax. This was reviewed and interpreted by myself the emergency room physician. I also reviewed the radiology report. Lab Review: Laboratory results were reviewed and interpreted by myself the emergency room physician. No leukocytosis. No anemia. No renal failure. I reviewed the patient's medical record. CTA chest with PE protocol: No acute process. No PE. No infiltrates. This was reviewed and interpreted by myself the emergency room physician. I also reviewed the radiology report. Reexamination: Patient remained stable. No increased work of breathing. No altered mental status. No focal motor deficits. Patient is much less tachypneic. Assessment and plan: Asthma with acute exacerbation ? Updraft and IV Solu-Medrol in the emergency room. - Discharged home - Discussed plan with patient. Answered any questions. - Evaluation and treatment of this problem were appropriate in the emergency setting. Lab Data 10/15/24 21:00 10/15/24 21:00 Labs/Radiology: Radiology Impressions Chest X-Ray 10/15/24 20:06 IMPRESSION: Streaky subsegmental left retrocardiac opacity favored to represent atelectasis. Superimposed infection can not be excluded. Chest CTA 10/15/24 20:50 IMPRESSION: No pulmonary emboli. No acute thoracic abnormality. Laboratory Results WBC 10.52 10^3/uL (3.29-11.43) 10/15/24 21:00 RBC 3.95 10^6/uL (3.85-5.65) 10/15/24 21:00 Hgb 12.20 g/dL (11.27-16.99) 10/15/24 21:00 Hct 37.0 % (36-47) 10/15/24 21:00 MCV 93.7 fl (85-98) 10/15/24 21:00 MCH 30.9 pg (27-33) 10/15/24 21:00 MCHC 33.0 g/dL (30-55) 10/15/24 21:00 RDW 12.9 % (12.1-15.1) 10/15/24 21:00 Plt Count 257 10^3/cmm (157-399) 10/15/24 21:00 MPV 11.5 fL (7.4-10.4) H 10/15/24 21:00 Neut % (Auto) 87.9 % 10/15/24 21:00 Lymph % (Auto) 9.9 % 10/15/24 21:00 [place] % (Auto) 1.7 % 10/15/24 21:00 Eos % (Auto) 0.0 % 10/15/24 21:00 Baso % (Auto) 0.1 % 10/15/24 21:00 Neut # (Auto) 9.25 10^3/uL (1.8-7.7) H 10/15/24 21:00 Lymph # (Auto) 1.0 10^3/uL (0.8-4.8) 10/15/24 21:00 [place] # (Auto) 0.2 10^3/uL (0.2-0.9) 10/15/24 21:00 Eos # (Auto) 0.0 10^3/uL (0.0-0.8) 10/15/24 21:00 Baso # (Auto) 0.0 10^3/uL (0.0-0.1) 10/15/24 21:00 Nucleated RBC % (auto) 0 % 10/15/24 21:00 Nucleated RBCs # 0.0 /100WBC 10/15/24 21:00 Sodium 138 mmol/L (136-145) 10/15/24 21:00 Potassium 4.3 mmol/L (3.5-5.1) 10/15/24 21:00 Chloride 105 mmol/L (98-107) 10/15/24 21:00 Carbon Dioxide 17 mmol/L (22-29) L 10/15/24 21:00 Anion Gap 20.3 (5-19) H 10/15/24 21:00 BUN 16 mg/dL (6-20) 10/15/24 21:00 Creatinine 0.8 mg/dL (0.5-0.9) 10/15/24 21:00 GFR Calculation 83.1 mL/min (90-130) L 10/15/24 21:00 Glucose 145 mg/dL (65-115) H 10/15/24 21:00 Calculated Osmolality 290 mOsm/kg (285-295) 10/15/24 21:00 Calcium 9.6 mg/dL (8.5-10.5) 10/15/24 21:00 Total Bilirubin 0.2 mg/dL (0.15-1.2) 10/15/24 21:00 AST 16 U/L (0-32) 10/15/24 21:00 ALT 9 U/L (0-33) 10/15/24 21:00 Alkaline Phosphatase 59 U/L (35-105) 10/15/24 21:00 Total Protein 7.5 g/dL (6.6-8.7) 10/15/24 21:00 Albumin 4.2 g/dL (3.5-5.2) 10/15/24 21:00 Globulin 3.3 g/dL (1.3-4.6) 10/15/24 21:00 HCG, Qual Negative (Negative) 10/15/24 21:00 All radiology interpretation(s) finalized by discharge Discharge Plan Discharge Patient Disposition: Home Clinical Impression: Asthma with exacerbation Condition: Stable Prescriptions: New doxycycline hyclate 100 mg capsule 100 mg PO BID 7 Days Qty: 14 0RF prednisone 20 mg tablet 60 mg PO DAILY 5 Days Qty: 15 0RF albuterol sulfate 90 mcg/actuation HFA aerosol inhaler 2 inh inhalation Q4H PRN (Reason: shortness of breath or wheezing) Qty: 6.7 0RF Rx Instructions: Please provide patient with a spacer No Action prednisone 20 mg tablet 60 mg PO DAILY 5 Days Qty: 15 0RF levofloxacin 750 mg tablet 750 mg PO DAILY 7 Days Qty: 7 0RF albuterol sulfate [Ventolin HFA] 90 mcg/actuation HFA aerosol inhaler 2 inh inhalation Q4H PRN (Reason: shortness of breath or wheezing) Qty: 6.7 0RF paroxetine HCl [Paxil] 10 mg tablet 10 mg PO DAILY montelukast 10 mg tablet 10 mg PO DAILY albuterol sulfate 90 mcg/actuation aerosol powdr breath activated 2 inh inhalation Q4H PRN paroxetine HCl [Paxil] 10 mg tablet 10 mg PO DAILY Qty: 21 0RF atomoxetine [Strattera] 60 mg capsule 60 mg PO DAILY mirtazapine [Remeron] 15 mg tablet 15 mg PO DAILY ondansetron 4 mg tablet,disintegrating 4 mg PO Q6H PRN (Reason: nausea and vomiting) Qty: 12 0RF Rx Instructions: 340b please prednisone 20 mg tablet 20 mg PO DAILY 5 Days Qty: 5 0RF azithromycin 500 mg tablet 500 mg PO DAILY 5 Days Qty: 5 0RF Discharge Orders: Discharge ED (Routine); Ordered 10/15/24 Ordered By: Rose Mary Dorman Referrals: Darcy Cosby FNP [Primary Care Provider, Unknown] Discharge Diet: Usual diet Discharge Activity: Increase activity as tolerated Patient Instructions: How to Use a Metered-Dose Inhaler and a Spacer (ED), Opioid Safety, Pain Management, Patient Portal & Trini Instructions Activity Restrictions/Additional Instructions: Thank you for choosing [facility] for your healthcare needs today. You have been screened and evaluated and felt safe for discharge. Health conditions do change or evolve sometimes and as such it is important that you follow up with your Primary Doctor to be re checked, 3-5 days is a general good time frame for follow up. You are always welcome to return to the ED for re assessment if your symptoms are worsening or you have new concerns Print Language: Greek Coding Level of Care Code ED Impact Retail Service Merchandiser for Dolores Nathan
[2024-10-15 21:25] LABS: Hematocrit 37.0 % (36-47); Hemoglobin 12.20 g/dL (11.27-16.99); Mean Corpuscular HGB Conc 33.0 g/dL (30-55); Mean Corpuscular Hemoglobin 30.9 pg (27-33); Mean Corpuscular Volume 93.7 fl (85-98); Nucleated Red Blood Cells % 0 %; Platelet Count 257 10^3/cmm (157-399); Red Blood Count 3.95 10^6/uL (3.85-5.65); White Blood Count 10.52 10^3/uL (3.29-11.43)
[2024-10-15 21:36] LABS: Alanine Aminotransferase 9 U/L (0-33); Albumin Level 4.2 g/dL (3.5-5.2); Alkaline Phosphatase 59 U/L (35-105); Blood Urea Nitrogen 16 mg/dL (6-20); Calcium 9.6 mg/dL (8.5-10.5); Carbon Dioxide 17 mmol/L (22-29); Chloride 105 mmol/L (98-107); Creatinine Clr Calc Pharmacy 88.3913; Globulin 3.3 g/dL (1.3-4.6); Glucose 145 mg/dL (65-115); Osmolality Calculated 290 mOsm/kg (285-295); Sodium 138 mmol/L (136-145); Total Protein 7.5 g/dL (6.6-8.7)
[2024-10-15 21:38] VITALS: PULSE 65; RESP 17; O2SAT 99
[2024-10-15 21:39] LABS: Anion Gap 20.3 (5-19); Aspartate Amino Transferase 16 U/L (0-32); Potassium 4.3 mmol/L (3.5-5.1)
[2024-10-15 21:44] VITALS: PULSE 73
[2024-10-15 21:53] LABS: HCG, Serum Qual Negative (Negative)
[2024-10-15] MEDS: iohexol 350 mg/mL 500 mL Btl (per mL) IV (21:59)
[2024-10-15 22:00] VITALS: PULSE 61; O2SAT 98
[2024-10-15 22:41] VITALS: BP 111/67; PULSE 68; O2SAT 100
== END 2024-10-15 22:42 | disposition home or self-care (01) ==
PROVIDERS: Emergency Provider Emergency Medicine; PCP Nurse Practitioner Family
DX: J45.901 Unspecified asthma with (acute) exacerbation (principal)
CPT/HCPCS: 36415; 71045; 71275; 80053; 84703; 85025; 93005; 94640; 96374; 99285; J2919; J7613